=== PATIENT | male | born 1960 | race Caucasian/White ===

== ENCOUNTER 2017-05-07 10:23 | Day surgery (SDC) | payer BC, OTHER ==
[2017-05-03 15:25] VITALS: BMI 27.2
[~2017-05-07 10:23] MED LIST: LACTATED RINGERS 1,000 ML IV SCH; LIDOCAINE 1% 20 ML VIAL (10MG/ML) FOR IV START INTRADERMA PRN
[2017-05-07 11:00] VITALS: RESP 16; TEMP 98.1
[2017-05-07] MEDS ORDERED: LIDOCAINE 1% INJ 10MG/ML (20 ML MDV) ONE (11:24)
[2017-05-07] MEDS ORDERED: PROPOFOL 10 MG/ML 20 ML VIAL IV ONE (11:24)
--- NOTE | 2017-05-07 11:50 | P.PCN ---
Date of Procedure: 05/07/17 Preoperative Diagnosis: Postoperative Diagnosis: Procedure(s) Performed: Procedure: Total colonoscopy. Preoperative diagnosis: History of diverticulitis. Postoperative diagnosis: Sigmoid diverticulosis with no evidence of acute diverticulitis, strictures, polyps or cancer. Preparation: HalfLytely prep. Sedation: Was provided by anesthesia. Brief clinical history: The patient is a 57-year-old male who was evaluated in the office earlier this month because of recent episodes of diverticulitis. The patient had one episode in January and a second episode a month later. His last colonoscopy was in June 2012. This evaluation is to assess for complicated diverticular disease or other pathology. Procedure: With the patient on his left lateral decubitus position and after informed consent and adequate sedation, the perianal area was inspected and it did not show any fissures or fistulas. There were no masses felt on digital rectal examination. The Olympus CFQ 160L video colonoscope was then inserted in the rectum in the usual fashion and advanced to the cecum. There were several diverticular orifices seen scattered in the sigmoid with no evidence of acute diverticulitis or strictures. No polyps or tumors were seen or any other pathology. I retroflexed the endoscope in the rectum before the endoscope was withdrawn. The patient tolerated the procedure well. Plan: The patient was reassured. Discussed dietary measures. He will follow up with you as planned. Further plans will be made based on his course. In the absence of family history of colon cancer or finding of polyps, I recommended repeat screening in 10 years. Implants: Indications for Procedure: Operative Findings: Description of Procedure:
[2017-05-07 12:06] VITALS: BP 115/81; PULSE 60
== END 2017-05-07 12:17 | disposition home or self-care (01) ==
LOC: ORWHC2ENDO 10:23
DX: K57.30 Diverticulosis of large intestine without perforation or abscess without bleeding (principal); I10 Essential (primary) hypertension; Z79.899 Other long term (current) drug therapy
CPT/HCPCS: 45378; J2001; J2704

== ENCOUNTER 2018-08-28 08:11 | Day surgery (SDC) | payer BC ==
[2018-08-26 14:47] VITALS: BMI 26.9
[~2018-08-28 08:11] MED LIST changes: +DEXAMETHASONE SOD PHOSPHATE 10 MG/ML 1 ML VIAL IV ONE; +HEPARIN SODIUM,PORCINE 5,000 UNIT/ML 1 ML VIAL SQ ONE; +HYDROmorphone 0.5 MG/0.5 ML SYRINGE IVP PRN; +ONDANSETRON 4 MG/2 ML VIAL IVP ONE; +SCOPOLAMINE 1.5MG/72HR PATCH TRANSDERM ONE; +ceFAZolin IN SWFI 2 GM/20 ML SYRINGE IVP ONE
[2018-08-28 09:19] VITALS: RESP 16
[2018-08-28] MEDS ORDERED: MIDAZOLAM 2 MG/2 ML VIAL IVP ONE (09:44)
[2018-08-28] MEDS ORDERED: fentaNYL (PF) 50 MCG/ML 2 ML AMP IVP ONE (09:44)
--- NOTE | 2018-08-28 09:46 | P.GSHP ---
History of Present Illness H&P Date: 08/28/18 Chief Complaint: Left inguinal hernia Patient seen in the office in June. Patient has complaints of bulging left groin. Found on physical exam to have a left inguinal hernia. Some urinary complaints at times. No change in bowel habits. Past Medical History Past Medical History: Cancer, Hypertension Additional Past Medical History / Comment(s): SKIN CANCER History of Any Multi-Drug Resistant Organisms: None Reported Past Surgical History: Back Surgery Additional Past Surgical History / Comment(s): disectomy Past Anesthesia/Blood Transfusion Reactions: Motion Sickness Smoking Status: Never smoker - Past Family History Mother Family Medical History: No Reported History Medications and Allergies Home Medications Medication Instructions Recorded Confirmed Type Cetirizine HCl [Zyrtec] 10 mg PO DAILY 05/03/17 08/26/18 History Fluticasone Nasal [place] [Flonase 2 spr EA NOSTRIL DAILY 05/03/17 08/26/18 History Nasal [place]] Hydrochlorothiazide [Hydrodiuril] 25 mg PO DAILY 05/03/17 08/26/18 History Montelukast [Singulair] 10 mg PO DAILY 05/03/17 08/26/18 History Allergies Allergy/AdvReac Type Severity Reaction Status Date / Time No Known Allergies Allergy Verified 08/28/18 08:49 Surgical - Exam Vital Signs Temp Pulse Resp BP Pulse Ox 98.0 F 85 16 142/85 99 08/28/18 09:05 08/28/18 09:05 08/28/18 09:05 08/28/18 09:05 08/28/18 09:05 Physical exam: General: Well-developed, well-nourished HEENT: Normocephalic, sclerae nonicteric Abdomen: Nontender, nondistended, reducible left inguinal hernia Extremities: No edema Neuro: Alert and oriented Assessment and Plan (1) Left inguinal hernia Narrative/Plan: Will proceed with laparoscopic da Noemy assisted left inguinal hernia repair with mesh. Possible bilateral. Risks of bleeding, infection, recurrence, bladder and bowel injury, numbness, nerve injury, conversion to an open procedure were discussed with the patient. The patient understands and wishes to proceed. Current Visit: Yes Status: Acute Code(s): K40.90 - UNIL INGUINAL HERNIA, W/ O OBST OR GANGR, NOT SPCF RECUR SNOMED Code(s): 601937565
[2018-08-28] MEDS ORDERED: KETOROLAC 30 MG/ML 1 ML VIAL ONE (10:10)
[2018-08-28] MEDS ORDERED: MIDAZOLAM 2 MG/2 ML VIAL ONE (10:10)
[2018-08-28] MEDS ORDERED: ROCURONIUM BROMIDE 10 MG/ML 10 ML VIAL IV ONE (10:10)
[2018-08-28] MEDS ORDERED: fentaNYL (PF) 50 MCG/ML 2 ML AMP ONE (10:10)
[2018-08-28] MEDS ORDERED: SUCCINYLCHOLINE CHLORIDE 100 MG/5 ML SYR IV ONE (10:10)
[2018-08-28] MEDS ORDERED: PROPOFOL 10 MG/ML 20 ML VIAL IV ONE (10:10)
[2018-08-28] MEDS ORDERED: LIDOCAINE 1% INJ 10MG/ML (20 ML MDV) ONE (10:10)
[2018-08-28] MEDS ORDERED: GLYCOPYRROLATE 0.2 MG/ML 2 ML VIAL ONE (10:10)
[2018-08-28] MEDS ORDERED: NEOSTIGMINE 1 MG/ML 10 ML VIAL ONE (10:10)
[2018-08-28] MEDS ORDERED: BUPIVACAIN-EPI 0.25%-1:200,000 30 ML VIAL SQ ONE ×2 (10:39)
--- NOTE | 2018-08-28 10:48 | P.ONQ ---
Anesthesiology Proc Note - PNB - Peripheral Nerve Block Performed Left Transversus Abdominis Single Time Out Performed: Yes Procedure Start Time: 09:45 Indication: Acute Post-Operative Pain, Analgesia Specifically requested for management of pain by DrJane: Rinku Carter Sedation Type: Sedate with meaningful contact maintained Preparation: Sterile Prep Position: Supine Catheter: None Needle Types: Other (see comment) (Pajunk) Needle Size: 100mm (4") Needle Gauge: 21 Technique: Ultrasound Injectate: Other (see comment) (0.25% ropivacaine/0.1% lidocaine: 30 mL) Adjunct: Epinephrine (see comment for dilution ratio) (1:200,000) Blood Aspirated: No Pain Paresthesia on Injection Noted: No Resistance on Injection: Normal Events: Uneventful and Well Tolerated
[2018-08-28] MEDS ORDERED: LACTATED RINGERS 1,000 ML IV ONE (11:22)
[2018-08-28] MEDS ORDERED: HYDROcodone/APAP 5-325MG 1 EACH TAB PO PRN (12:00)
[2018-08-28] MEDS ORDERED: NALOXONE 0.4 MG/ML 1 ML VIAL IV PRN (12:00)
--- NOTE | 2018-08-28 12:04 | P.PCN ---
Date of Procedure: 08/28/18 Procedure(s) Performed: PREOPERATIVE DIAGNOSIS: Left inguinal hernia POSTOPERATIVE DIAGNOSIS: Same PROCEDURE: Laparoscopic repair [] inguinal hernia with the da Noemy robot assistance with mesh SURGEON: Emma EBL: Minimal ANESTHESIA: General COMPLICATIONS: None OPERATIVE PROCEDURE: Patient was placed in the operating table in the supine position. The patient was placed under general anesthesia. The patient was then placed in lithotomy. The abdomen was prepped and draped in usual sterile fashion. A small curvilinear supraumbilical incision was made. The fascia was retracted anteriorly with Estela forceps. The Veress needle was inserted. The saline drop test was normal. Insufflation took place to 15 mmHg. A 5 mm trocar was placed into the peritoneal cavity. This was later switched to a 12 mm trocar. 2 additional 8 mm trochars were placed in the right upper quadrant and left upper quadrant under visualization. The robotic arms were then brought in and docked into place. The fenestrated bipolar was used in the left arm and the laparoscopic dimple was utilized in the right arm. A 30 12 mm scope was used in the up position. The peritoneal cavity was inspected. The patient had no visible right inguinal hernia. The patient had a large direct left inguinal hernia. There were dense adhesions to the sigmoid colon and I could not say with certainty whether there was an indirect component upon initial evaluation. The peritoneum was incised in a horizontal fashion cephalad to the internal inguinal ring. Following that careful dissection of the preperitoneal space took place. This took place using both electrocautery, sharp dissection but primarily blunt dissection. This was somewhat more challenging than usual given the chronic inflammatory change. The planes were difficult to visualize. Visualization of the pubic tubercle and Margarito's ligament took place medially. Full dissection took place laterally as well. The hernia sac was fully dissected. The patient did not have any sizable indirect component. Once we had adequate space the 15 x 10 progrip mesh was advanced into the preperitoneal space and flattened out appropriately to cover all potential hernia sites. No sutures were used. The peritoneal defect was then closed using a locking 2-0 VLok suture. The pneumoperitoneum was then evacuated. The fascia at the 12 mm site was closed using the Ryan Conway technique and an 0 Vicryl stitch. The skin of all 3 sites was closed using a 4-0 Monocryl stitch. Skin glue was then applied. DISPOSITION: Stable to recovery room
[2018-08-28 12:12] VITALS: TEMP 97.2
[2018-08-28] MEDS ORDERED: TAMSULOSIN 0.4 MG CAP.ER.24H PO STA (12:55)
[2018-08-28 15:11] VITALS: BP 138/90; PULSE 69
== END 2018-08-28 15:17 | disposition home or self-care (01) ==
LOC: OR 08:11
PROVIDERS: ATTEND Surgery
DX: K40.90 Unilateral inguinal hernia, without obstruction or gangrene, not specified as recurrent (principal); K66.0 Peritoneal adhesions (postprocedural) (postinfection); I10 Essential (primary) hypertension; Z85.828 Personal history of other malignant neoplasm of skin; Z79.899 Other long term (current) drug therapy
CPT/HCPCS: 49650; 64486; C1781; J2250; J1100; J2710; J2405; J2001; J3010; J1885; J0330; J2704

== ENCOUNTER 2019-06-01 10:36 | Observation (INO) | payer BC ==
[2019-06-01] MEDS ORDERED: MORPHINE SULFATE 4 MG/ML SYRINGE IV STA (11:19)
[2019-06-01] MEDS ORDERED: SODIUM CHLORIDE 0.9% 1,000 ML IV STA ×2 (11:19)
[2019-06-01] MEDS ORDERED: KETOROLAC 30 MG/ML 1 ML VIAL IVP STA (11:19)
[2019-06-01] MEDS ORDERED: ONDANSETRON 4 MG/2 ML VIAL IVP STA (11:19)
[2019-06-01] MEDS ORDERED: PANTOPRAZOLE 40 MG/10 ML VIAL IVP STA (11:19)
--- NOTE | 2019-06-01 11:21 | ED ---
Abdominal Pain HPI - General Chief Complaint: Abdominal Pain Stated Complaint: Upper Abdomen Pain Time Seen by Provider: 06/01/19 10:53 Source: patient, RN notes reviewed, old records reviewed Mode of arrival: ambulatory Limitations: no limitations - History of Present Illness Initial Comments: Patient is a 59-year-old male presents emergency department today for chief complaint of diffuse abdominal pain for the past 3 days. Symptoms started after he ate a chicken sandwich on night. He states that he woke up after a nap and felt that there was a hard rock in upper abdomen. Patient initially Thought he was constipated, and started to Using Multiple Stool Softeners and Prune Juice to Help Improve bowel moevements. He since has Been Having Loose Stools. He States the Pain Is Persisting in upper abdomen. He Complains of Some Occasional Fevers and Chills. Patient Denies Any Other Significant Complaints. Patient reports pain occasionally is worse with taking deep breath and feels like it is under his diaphragm. - Related Data Home Medications Medication Instructions Recorded Confirmed Cetirizine HCl [Zyrtec] 10 mg PO DAILY 05/03/17 06/01/19 Fluticasone Nasal [place] [Flonase 2 spr EA NOSTRIL DAILY 05/03/17 06/01/19 Nasal [place]] Hydrochlorothiazide [Hydrodiuril] 25 mg PO DAILY 05/03/17 06/01/19 Montelukast [Singulair] 10 mg PO DAILY 05/03/17 06/01/19 Allergies Allergy/AdvReac Type Severity Reaction Status Date / Time No Known Allergies Allergy Verified 06/01/19 13:56 Review of Systems ROS Statement: Those systems with pertinent positive or pertinent negative responses have been documented in the HPI. ROS Other: All systems not noted in ROS Statement are negative. Past Medical History Past Medical History: Cancer, Hypertension Additional Past Medical History / Comment(s): SKIN CANCER History of Any Multi-Drug Resistant Organisms: None Reported Past Surgical History: Back Surgery Additional Past Surgical History / Comment(s): disectomy Past Anesthesia/Blood Transfusion Reactions: Motion Sickness Past Psychological History: No Psychological Hx Reported Smoking Status: Never smoker - Past Family History Mother Family Medical History: No Reported History General Exam - General Exam Comments Initial Comments: Pleasant 59-year-old male. No significant distress. Limitations: no limitations General appearance: alert, in no apparent distress Head exam: Present: atraumatic, normocephalic, normal inspection Eye exam: Present: normal appearance, PERRL, EOMI. Absent: scleral icterus, conjunctival injection, periorbital swelling ENT exam: Present: normal exam, mucous membranes moist Neck exam: Present: normal inspection. Absent: tenderness, meningismus, lymphadenopathy Respiratory exam: Present: normal lung sounds bilaterally. Absent: respiratory distress, wheezes, rales, rhonchi, stridor Cardiovascular Exam: Present: regular rate, normal rhythm, normal heart sounds. Absent: systolic murmur, diastolic murmur, rubs, gallop, clicks GI/Abdominal exam: Present: soft, tenderness (epigastric tenderness), normal bowel sounds. Absent: distended, guarding, rebound, rigid Back exam: Present: normal inspection Neurological exam: Present: alert, oriented X3, CN II-XII intact Psychiatric exam: Present: normal affect, normal mood Skin exam: Present: warm, dry, intact, normal color. Absent: rash Course Vital Signs 06/01/19 10:47 Temperature 98.2 F Pulse Rate 62 Respiratory 18 Rate Blood Pressure 152/89 O2 Sat by Pulse 98 Oximetry Medical Decision Making - Medical Decision Making Is a 51-year-old male, presents emergency department today for evaluation for epigastric abdominal pain, initially thought his symptoms related To Patient taking multiple stool softeners. Having symptoms worse for the past 4 days. Patient had IV fluids labwork obtained. Labs are reviewed and unremarkable. Due to persistent tenderness CT was ordered. CT shows abnormal 7.8 cm cystic mass with calcifications in the upper abdomen diaphragm. It appears separate from the stomach adrenal glands and kidneys. Patient was informed this could be possible cystic neoplasm or benign or possibly malignant. Patient was informed of these results. Patient states that he surprised by this finding. I discussed the Rika the Patient for further observation and possible consult surgery or interventional radiology to biopsy this area. Patient understands treatment plan will comply. - Lab Data Result diagrams: 06/01/19 11:35 06/01/19 11:35 Lab Results 06/01/19 06/01/19 06/01/19 Range/Units 11:35 11:35 11:35 WBC 10.4 (3.8-10.6) k/uL RBC 5.21 (4.30-5.90) m/uL Hgb 15.9 (13.0-17.5) gm/dL Hct 46.1 (39.0-53.0) % MCV 88.6 (80.0-100.0) fL MCH 30.6 (25.0-35.0) pg MCHC 34.5 (31.0-37.0) g/dL RDW 15.6 H (11.5-15.5) % Plt Count 296 (150-450) k/uL Neutrophils % 83 % Lymphocytes % 11 % Monocytes % 4 % Eosinophils % 1 % Basophils % 0 % Neutrophils # 8.6 H (1.3-7.7) k/uL Lymphocytes # 1.1 (1.0-4.8) k/uL Monocytes # 0.4 (0-1.0) k/uL Eosinophils # 0.1 (0-0.7) k/uL Basophils # 0.0 (0-0.2) k/uL PT 9.7 (9.0-12.0) sec INR 0.9 (<1.2) APTT 23.8 (22.0-30.0) sec Sodium 137 (137-145) mmol/L Potassium 3.9 (3.5-5.1) mmol/L Chloride 99 (98-107) mmol/L Carbon Dioxide 27 (22-30) mmol/L Anion Gap 11 mmol/L BUN 19 (9-20) mg/dL Creatinine 0.81 (0.66-1.25) mg/dL Est GFR (CKD-EPI)AfAm >90 (>60 ml/min/1.73 sqM) Est GFR (CKD-EPI)NonAf >90 (>60 ml/min/1.73 sqM) Glucose 117 H (74-99) mg/dL Calcium 9.7 (8.4-10.2) mg/dL Total Bilirubin 1.2 (0.2-1.3) mg/dL AST 24 (17-59) U/L ALT 33 (21-72) U/L Alkaline Phosphatase 60 (38-126) U/L Total Protein 7.6 (6.3-8.2) g/dL Albumin 4.4 (3.5-5.0) g/dL Amylase 48 (30-110) U/L Lipase 69 (23-300) U/L Urine Color Urine Appearance (Clear) Urine pH (5.0-8.0) Ur Specific [place] (1.001-1.035) Urine Protein (Negative) Urine Glucose (UA) (Negative) Urine Ketones (Negative) Urine Blood (Negative) Urine Nitrite (Negative) Urine Bilirubin (Negative) Urine Urobilinogen (<2.0) mg/dL Ur Leukocyte Esterase (Negative) 06/01/19 Range/Units 11:55 WBC (3.8-10.6) k/uL RBC (4.30-5.90) m/uL Hgb (13.0-17.5) gm/dL Hct (39.0-53.0) % MCV (80.0-100.0) fL MCH (25.0-35.0) pg MCHC (31.0-37.0) g/dL RDW (11.5-15.5) % Plt Count (150-450) k/uL Neutrophils % % Lymphocytes % % Monocytes % % Eosinophils % % Basophils % % Neutrophils # (1.3-7.7) k/uL Lymphocytes # (1.0-4.8) k/uL Monocytes # (0-1.0) k/uL Eosinophils # (0-0.7) k/uL Basophils # (0-0.2) k/uL PT (9.0-12.0) sec INR (<1.2) APTT (22.0-30.0) sec Sodium (137-145) mmol/L Potassium (3.5-5.1) mmol/L Chloride (98-107) mmol/L Carbon Dioxide (22-30) mmol/L Anion Gap mmol/L BUN (9-20) mg/dL Creatinine (0.66-1.25) mg/dL Est GFR (CKD-EPI)AfAm (>60 ml/min/1.73 sqM) Est GFR (CKD-EPI)NonAf (>60 ml/min/1.73 sqM) Glucose (74-99) mg/dL Calcium (8.4-10.2) mg/dL Total Bilirubin (0.2-1.3) mg/dL AST (17-59) U/L ALT (21-72) U/L Alkaline Phosphatase (38-126) U/L Total Protein (6.3-8.2) g/dL Albumin (3.5-5.0) g/dL Amylase (30-110) U/L Lipase (23-300) U/L Urine Color Yellow Urine Appearance Clear (Clear) Urine pH 6.5 (5.0-8.0) Ur Specific [place] 1.018 (1.001-1.035) Urine Protein Negative (Negative) Urine Glucose (UA) Negative (Negative) Urine Ketones 1+ H (Negative) Urine Blood Negative (Negative) Urine Nitrite Negative (Negative) Urine Bilirubin Negative (Negative) Urine Urobilinogen <2.0 (<2.0) mg/dL Ur Leukocyte Esterase Negative (Negative) 06/01/19 12:13 EKG shows sinus bradycardia left axis deviation noted. Much. 47 bpm. Pulse 162 ms. QS duration is 94 ms. QT and sees 44/92 ms. No evidence of ST elevation. - Radiology Data Radiology results: report reviewed Disposition Clinical Impression: Abdominal mass Disposition: ADMITTED IP TO THIS [facility] Condition: Good Is patient prescribed a controlled substance at d/c from ED?: No Referrals: Ava Caro III, MD [Primary Care Provider] - 1-2 days Time of Disposition: 14:04
[2019-06-01 11:52] LABS: Basophils % (A) 0 %; Eosinophils # (A) 0.1 k/uL (0-0.7); Eosinophils % (A) 1 %; HCT 46.1 % (39.0-53.0); HGB 15.9 gm/dL (13.0-17.5); Lymphocytes # (A) 1.1 k/uL (1.0-4.8); Lymphocytes % (A) 11 %; MCH 30.6 pg (25.0-35.0); MCHC 34.5 g/dL (31.0-37.0); MCV 88.6 fL (80.0-100.0); Mean Platelet Volume 6.9; Monocytes # (A) 0.4 k/uL (0-1.0); Monocytes % (A) 4 %; Neutrophils # (A) 8.6 k/uL (1.3-7.7); Neutrophils % (A) 83 %; Platelet Count 296 k/uL (150-450); RBC 5.21 m/uL (4.30-5.90); RDW 15.6 % (11.5-15.5); WBC 10.4 k/uL (3.8-10.6)
[2019-06-01 12:01] LABS: INR 0.9 (<1.2); Partial Thromboplastin Time 23.8 sec (22.0-30.0); Prothrombin Time 9.7 sec (9.0-12.0)
[2019-06-01 12:03] LABS: ALT 33 U/L (21-72); AST 24 U/L (17-59); African American GFR (CKD) >90 (>60 ml/min/1.73 sqM); Albumin 4.4 g/dL (3.5-5.0); Alkaline Phosphatase 60 U/L (38-126); Amylase 48 U/L (30-110); Anion Gap 11 mmol/L; Blood Urea Nitrogen 19 mg/dL (9-20); Calcium 9.7 mg/dL (8.4-10.2); Carbon Dioxide 27 mmol/L (22-30); Chloride 99 mmol/L (98-107); Glucose 117 mg/dL (74-99); Potassium 3.9 mmol/L (3.5-5.1); Sodium 137 mmol/L (137-145); Total Bilirubin 1.2 mg/dL (0.2-1.3); Total Protein 7.6 g/dL (6.3-8.2)
[2019-06-01 12:03] LABS: Appearance,Urine Clear (Clear); Bilirubin,Urine Negative (Negative); Blood,Urine Negative (Negative); Color,Urine Yellow; Glucose,Urine (UA) Negative (Negative); Ketones,Urine 1+ (Negative); Leukocyte Esterase,Urine Negative (Negative); Nitrite,Urine Negative (Negative); PH, Urine 6.5 (5.0-8.0); Protein,Urine Negative (Negative); Specific Gravity,Urine 1.018 (1.001-1.035); Urobilinogen,Urine <2.0 mg/dL (<2.0)
--- NOTE | 2019-06-01 13:10 | CT ---
EXAMINATION TYPE: CT abdomen pelvis w con DATE OF EXAM: 06/01/2019 REFERENCE: NONE HISTORY: LLQ pain, diverticulitis? HISTORY: LLQ pain CT DLP: 804.7 mGy Automated exposure control for dose reduction was used. TECHNIQUE: Helical acquisition through the abdomen and pelvis was obtained following the oral ingesti on of without Oral Contrast and following intravenous administration of 100 mL of Isovue 300. The gretta a was reformatted in axial, coronal and sagittal projections. FINDINGS: There is minimal dependent atelectasis in the dependent portions of both lungs. There is n o pleural or pericardial fluid. The heart is not enlarged. There is a 6.5 x 7.8 x 7.8 cm low attenuating structure in the left upper abdomen displacing the aort a towards the right. This has some calcification in its dependent portions. This appears separate fro m the stomach, adrenal glands and kidneys. It appears to be contiguous with the crux of the diaphragm and may represent a foregut duplication cyst. Other cystic neoplasms both benign and malignant would need to BE considered. Within the abdomen, the liver, spleen and gallbladder. Both adrenal glands appear normal. There are multiple low attenuating lesions within both kidneys too small accurately characterize. I s uspect these represent cysts. The pancreas appears unremarkable. There is no significant retroperitoneal, iliac or inguinal adenopathy. There is mild calcification of the prostate. The bladder is unremarkable. There are scattered diverticula within the sigmoid colon without radiographic evidence of diverticuli tis. The appendix is unremarkable. Small bowel loops are normal in caliber. There is no free fluid and no free air identified. There is degenerative disease and a vacuum phenomena present at L5-S1. No bony destructive lesion is seen. IMPRESSION: 1. LARGE, 7.8 CM CYSTIC MASS CONTAINING SOME CALCIFICATIONS IN THE LEFT PARASPINAL REGION ADJACENT TO THE CRUX OF THE DIAPHRAGM. 4 DUPLICATION CYST IS A POSSIBILITY. OTHER NEOPLASTIC PROCESSES BOTH MORGAN GN AND MALIGNANT BE CONSIDERED. 2. PROBABLE CYSTIC CHANGES IN BOTH KIDNEYS. 3. MINIMAL DIVERTICULOSIS OF THE SIGMOID COLON. 4. MILD DEGENERATIVE CHANGES WITHIN THE SPINE.
[2019-06-01] MEDS ORDERED: ACETAMINOPHEN TAB 325 MG TAB PO PRN (14:05)
[2019-06-01] MEDS ORDERED: KETOROLAC 30 MG/ML 1 ML VIAL IVP PRN (14:05)
[2019-06-01] MEDS ORDERED: MORPHINE SULFATE 4 MG/ML SYRINGE IV PRN (14:05)
[2019-06-01] MEDS ORDERED: IBUPROFEN 400 MG TAB PO PRN (14:05)
[2019-06-01] MEDS ORDERED: ONDANSETRON 4 MG/2 ML VIAL IVP PRN (14:05)
[2019-06-01] MEDS ORDERED: NALOXONE 0.4 MG/ML 1 ML VIAL IV PRN (14:05)
[2019-06-01] MEDS: SODIUM CHLORIDE 0.9% 1,000 ML IV SCH ×2 (15:58→22:03)
--- NOTE | 2019-06-01 23:16 | P.HPIM ---
History of Present Illness H&P Date: 06/01/19 Chief Complaint: Abdominal pain Patient is a 59-year-old male with a known history of hypertension, basilar cell skin cancer, history of back surgery came to ER with the complaints of abdominal pain, mainly middle of the abdomen and felt like pushing up to the bathroom. Patient has been having worsening symptoms for the past 3 days. He states that he is feeling fullness or abdominal and unable to eat as much before. Denied any loss of appetite or weight loss. Patient has been having constipation like symptoms once or twice a year which is reviewed in to 3 days usually. Patient felt like cold chills and became sweaty. Denied any constipation currently. Denied any diarrhea. Patient has been having persistent pain in the upper abdomen which made him come to ER. No complaints of chest pain or shortness of breath. No pleuritic chest pain. No Recent illnesses or sick contacts. CT of the abdominal pelvis showed large cystic 7.8 cm mass containing some calci fications in the left paraspinal region adjacent to the crux of the diaphragm. Possible cystic changes in both kidneys. Minimal diverticulosis in the sigmoid colon. Mild degenerative changes in the spine. No bony destructive lesions noted. EKG shows sinus bradycardia Review of Systems Constitutional: Patient denies any fever or chills . No generalized weakness or weight loss. Abdomen: Patient denied nausea vomiting and diarrhea and abdominal pain. Patient does have abdominal fullness and discomfort. Cardiovascular: Patient denies any chest pain or short of breath no palpitations. Respiratory: patient denied any cough is from production. No shortness of breath Neurologic: Patient denied any numbness or tingling headache. Musculoskeletal: Patient denies any complaints of joint swelling or deformity. Skin: Negative Psychiatric: Negative Endocrine: No heat or cold intolerance. No recent weight gain. Genitourinary: No dysuria or hematuria. All other 14 point ROS negative except the above Past Medical History Past Medical History: Blood Disorder, Cancer, Hypertension Additional Past Medical History / Comment(s): basal cell SKIN CANCER, anemia, broncitis History of Any Multi-Drug Resistant Organisms: None Reported Past Surgical History: Back Surgery, Hernia Repair Additional Past Surgical History / Comment(s): disectomy, cataract surgery with implants Past Anesthesia/Blood Transfusion Reactions: Motion Sickness Past Psychological History: No Psychological Hx Reported Smoking Status: Never smoker Past Alcohol Use History: Occasional Additional Past Alcohol Use History / Comment(s): . Past Drug Use History: None Reported - Past Family History Mother Family Medical History: Hypertension Father Family Medical History: COPD Additional Family Medical History / Comment(s): pacemaker Sister(s) Additional Family Medical History / Comment(s): MS Medications and Allergies Home Medications Medication Instructions Recorded Confirmed Type Cetirizine HCl [Zyrtec] 10 mg PO DAILY 05/03/17 06/01/19 History Fluticasone Nasal [place] [Flonase 2 spr EA NOSTRIL DAILY 05/03/17 06/01/19 History Nasal [place]] Hydrochlorothiazide [Hydrodiuril] 25 mg PO DAILY 05/03/17 06/01/19 History Montelukast [Singulair] 10 mg PO DAILY 05/03/17 06/01/19 History Allergies Allergy/AdvReac Type Severity Reaction Status Date / Time No Known Allergies Allergy Verified 06/01/19 13:56 Physical Exam Vitals: Vital Signs Temp Pulse Pulse Resp BP BP Pulse Ox 06/01/19 15:06 97.8 F 60 16 135/84 96 06/01/19 14:41 98.0 F 68 18 124/87 98 06/01/19 10:47 98.2 F 62 18 152/89 98 Intake and Output 06/01/19 06/01/19 06/01/19 06:59 14:59 22:59 Intake Total 300 Balance 300 Intake: Intake, IV Titration 300 Amount Sodium Chloride 0.9% 1, 300 000 ml @ 100 mls/hr IV . Q10H [facility] Rx#:[id number] Other: Voiding Method Toilet Weight 78.925 kg PHYSICAL EXAMINATION: Patient is lying in the bed comfortably, no acute distress, awake alert and oriented.. HEENT: Normocephalic. Neck is supple. Pupils reactive. Nostrils clear. Oral cavity is moist. Ears reveal no drainage. Neck reveals no JVD, carotid bruits, or thyromegaly. CHEST EXAMINATION: Trachea is central. Symmetrical expansion. Lung nugent clear to auscultation and percussion. CARDIAC: Normal S1, S2 with no gallops. No murmurs ABDOMEN: Soft. Bowel sounds normal. No organomegaly. No abdominal bruits. Extremities: reveal no edema. No clubbing or cyanosis Neurologically awake, alert, oriented x3 with well-coordinated movements. No focal deficits noted Skin: No rash or skin lesions. Psychiatric: Coperative. Nonsuicidal Musculoskeletal: No joint swelling or deformity. Normal range of motion. Results CBC & Chem 7: 06/01/19 11:35 06/01/19 11:35 Labs: Abnormal Lab Results - Last 24 Hours (Table) 06/01/19 06/01/19 06/01/19 Range/Units 11:35 11:35 11:55 RDW 15.6 H (11.5-15.5) % Neutrophils # 8.6 H (1.3-7.7) k/uL Glucose 117 H (74-99) mg/dL Urine Ketones 1+ H (Negative) Thrombosis Risk Factor Assmnt - DVT/VTE Prophylaxis DVT/VTE Prophylaxis: Pharmacologic Prophylaxis ordered - Choose All That Apply Any of the Below Risk Factors Present?: Yes Each Factor Represents 1 point: Age 41-60 years, Obesity (BMI >25) Other Risk Factors: No Other congenital or acquired thrombophilia - If yes, enter type in comment: No Thrombosis Risk Factor Assessment Total Risk Factor Score: 2 Thrombosis Risk Factor Assessment Level: Low Risk Assessment and Plan Assessment: Large cystic 7.8 cm mass in the left paraspinal region adjacent to the crux of the diaphragm. Abdominal fullness and decreased oral intake. Mild diverticulosis of the sigmoid colon Hypertension Basilar cell carcinoma of the skin history DVT prophylaxis with heparin subcu Plan: Patient will be continued on pain management and supportive. IV hydration. Gen. surgery will be consulted for evaluation possible biopsy versus further i nvestigation. We'll follow up closely. Further recommendations based on the clinical course.. Time with Patient: Greater than 30
[2019-06-02 07:52] VITALS: BP 120/75; PULSE 59; RESP 16; TEMP 98.2
[2019-06-02] MEDS ORDERED: PANTOPRAZOLE 40 MG/10 ML VIAL IV SCH (09:00)
--- NOTE | 2019-06-02 11:07 | P.GSCN ---
History of Present Illness Consult date: 06/02/19 Reason for Consult: Abdominal pain History of present illness: 59-year-old male presents to the hospital complaining of pain in the upper abdom en. This pain began evening and was increasing in severity. He came for evaluation. Was nauseated and bloated. No vomiting. Does have a history of constipation. After moving his bowels his pain did not improve. Pain sometimes more to the epigastric region. Does radiate to the back. Some early satiety issues. Some pleuritic component. 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 Patient admits after questioning that he had this evaluated at [facility] 1-2 years ago. He states he even had a biopsy. He was told this was likely congenital. He believes he had an EGD at that time. We're consulted for this mass. Review of Systems The patient denies any acute changes in vision or hearing, no dysphagia or odynophagia, no chest pain or shortness of breath, no dysuria or hematuria, no headache, no runny nose, no rectal bleeding or melena, no unexplained weight loss Past Medical History Past Medical History: Blood Disorder, Cancer, Hypertension Additional Past Medical History / Comment(s): basal cell SKIN CANCER, anemia, broncitis History of Any Multi-Drug Resistant Organisms: None Reported Past Surgical History: Back Surgery, Hernia Repair Additional Past Surgical History / Comment(s): disectomy, cataract surgery with implants Past Anesthesia/Blood Transfusion Reactions: Motion Sickness Past Psychological History: No Psychological Hx Reported Smoking Status: Never smoker Past Alcohol Use History: Occasional Additional Past Alcohol Use History / Comment(s): . Past Drug Use History: None Reported - Past Family History Mother Family Medical History: Hypertension Father Family Medical History: COPD Additional Family Medical History / Comment(s): pacemaker Sister(s) Additional Family Medical History / Comment(s): MS Medications and Allergies Home Medications Medication Instructions Recorded Confirmed Type Cetirizine HCl [Zyrtec] 10 mg PO DAILY 05/03/17 06/01/19 History Fluticasone Nasal [place] [Flonase 2 spr EA NOSTRIL DAILY 05/03/17 06/01/19 History Nasal [place]] Hydrochlorothiazide [Hydrodiuril] 25 mg PO DAILY 05/03/17 06/01/19 History Montelukast [Singulair] 10 mg PO DAILY 05/03/17 06/01/19 History Allergies Allergy/AdvReac Type Severity Reaction Status Date / Time No Known Allergies Allergy Verified 06/01/19 13:56 Surgical - Exam Vital Signs Temp Pulse Resp BP Pulse Ox 98.2 F 62 18 152/89 98 06/01/19 10:47 06/01/19 10:47 06/01/19 10:47 06/01/19 10:47 06/01/19 10:47 Physical exam: General: Well-developed, well-nourished HEENT: Normocephalic, sclerae nonicteric Abdomen: Nontender, nondistended Extremities: No edema Neuro: Alert and oriented Results - Labs 06/01/19 11:35 06/01/19 11:35 Abnormal Lab Results - Last 24 Hours (Table) 06/01/19 06/01/19 06/01/19 Range/Units 11:35 11:35 11:55 RDW 15.6 H (11.5-15.5) % Neutrophils # 8.6 H (1.3-7.7) k/uL Glucose 117 H (74-99) mg/dL Urine Ketones 1+ H (Negative) Diabetes panel 06/01/19 Range/Units 11:35 Sodium 137 (137-145) mmol/L Potassium 3.9 (3.5-5.1) mmol/L Chloride 99 (98-107) mmol/L Carbon Dioxide 27 (22-30) mmol/L BUN 19 (9-20) mg/dL Creatinine 0.81 (0.66-1.25) mg/dL Glucose 117 H (74-99) mg/dL Calcium 9.7 (8.4-10.2) mg/dL AST 24 (17-59) U/L ALT 33 (21-72) U/L Alkaline Phosphatase 60 (38-126) U/L Total Protein 7.6 (6.3-8.2) g/dL Albumin 4.4 (3.5-5.0) g/dL Calcium panel 06/01/19 Range/Units 11:35 Calcium 9.7 (8.4-10.2) mg/dL Albumin 4.4 (3.5-5.0) g/dL Pituitary panel 06/01/19 Range/Units 11:35 Sodium 137 (137-145) mmol/L Potassium 3.9 (3.5-5.1) mmol/L Chloride 99 (98-107) mmol/L Carbon Dioxide 27 (22-30) mmol/L BUN 19 (9-20) mg/dL Creatinine 0.81 (0.66-1.25) mg/dL Glucose 117 H (74-99) mg/dL Calcium 9.7 (8.4-10.2) mg/dL Adrenal panel 06/01/19 Range/Units 11:35 Sodium 137 (137-145) mmol/L Potassium 3.9 (3.5-5.1) mmol/L Chloride 99 (98-107) mmol/L Carbon Dioxide 27 (22-30) mmol/L BUN 19 (9-20) mg/dL Creatinine 0.81 (0.66-1.25) mg/dL Glucose 117 H (74-99) mg/dL Calcium 9.7 (8.4-10.2) mg/dL Total Bilirubin 1.2 (0.2-1.3) mg/dL AST 24 (17-59) U/L ALT 33 (21-72) U/L Alkaline Phosphatase 60 (38-126) U/L Total Protein 7.6 (6.3-8.2) g/dL Albumin 4.4 (3.5-5.0) g/dL Assessment and Plan (1) Abdominal mass Narrative/Plan: 59-year-old male with epigastric abdominal pain. This pain has resolved. Unclear whether that was related to this CAT scan finding of a mass adjacent to the esophagus at the level of the diaphragm. It appears this was already evaluated at a tertiary care center. I do not have those studies available to me. He would be beneficial to confirm stability of the size of this lesion and compared to previous studies. He believes he had a CAT scan performed at [facility] 2 years ago. Stable for discharge from my standpoint. May follow up in the office as needed. He will discuss this further with his primary care physician to review those prior records to confirm stability. If there does appear to be some growth of this lesion consider thoracic surgery evaluation at [facility]. Current Visit: Yes Status: Acute Code(s): R19.00 - INTRA-ABD AND PELVIC SWELLING, MASS AND LUMP, UNSP SITE SNOMED Code(s): 555075788
--- NOTE | 2019-06-08 19:31 | P.DS ---
Providers Date of admission: 06/01/19 14:44 Expected date of discharge: 06/02/19 Attending physician: Marco Valentin Consults: 06/01/19 22:56 Consult Physician Routine Consulting Provider: Rinku Carter Consult Reason/Comments: Abdominal Mass Do you want consulting provider notified?: Yes, Notify in am Primary care physician: Ava Caro Hospital Course: Discharge diagnosis Large cystic 7.8 cm mass in the left paraspinal region adjacent to the crux of the diaphragm. Abdominal fullness and decreased oral intake. Mild diverticulosis of the sigmoid colon Hypertension Basilar cell carcinoma of the skin history DVT prophylaxis with heparin subcu Hospital course Patient is a 59-year-old male with a known history of hypertension, basilar cell skin cancer, history of back surgery came to ER with the complaints of abdominal pain, mainly middle of the abdomen and felt like pushing up to the bathroom. Patient has been having worsening symptoms for the past 3 days. He states that he is feeling fullness or abdominal and unable to eat as much before. Denied any loss of appetite or weight loss. Patient has been having constipation like symptoms once or twice a year which is reviewed in to 3 days usually. Patient felt like cold chills and became sweaty. Denied any constipation currently. Denied any diarrhea. Patient has been having persistent pain in the upper abdomen which made him come to ER. No complaints of chest pain or shortness of breath. No pleuritic chest pain. No Recent illnesses or sick contacts. CT of the abdominal pelvis showed large cystic 7.8 cm mass containing some calcifications in the left paraspinal region adjacent to the crux of the diaphragm. Possible cystic changes in both kidneys. Minimal diverticulosis in the sigmoid colon. Mild degenerative changes in the spine. No bony destructive lesions noted. EKG shows sinus bradycardia 06/02/2019 Patient was seen by general surgery. Apparently patient did have workup done previously for the abdominal mass including computed tomography scan. Patient was recommended to follow-up with primary care physician to compare the size in both imaging studies and follow-up as an outpatient. Patient patient was advised to follow-up with primary care physician Dr. Caro and further recommendations based on the comparison studies of both images. Currently patient denied any abdominal discomfort. No nausea vomiting no chest pain or shortness of breath. Patient is emergently stable otherwise. Did have a bowel movement. Tolerating oral diet. PHYSICAL EXAMINATION: Patient is lying in the bed comfortably, no acute distress, awake alert and oriented.. HEENT: Normocephalic. Neck is supple. Pupils reactive. Nostrils clear. Oral cavity is moist. Ears reveal no drainage. Neck reveals no JVD, carotid bruits, or thyromegaly. CHEST EXAMINATION: Trachea is central. Symmetrical expansion. Lung nugent clear to auscultation and percussion. CARDIAC: Normal S1, S2 with no gallops. No murmurs ABDOMEN: Soft. Bowel sounds normal. No organomegaly. No abdominal bruits. Extremities: reveal no edema. No clubbing or cyanosis Neurologically awake, alert, oriented x3 with well-coordinated movements. No focal deficits noted Skin: No rash or skin lesions. Psychiatric: Coperative. Nonsuicidal Musculoskeletal: No joint swelling or deformity. Normal range of motion. Discharge vitals reviewed. Patient Condition at Discharge: Good Plan - Discharge Summary Discharge Rx Participant: No New Discharge Prescriptions: Continue Fluticasone Nasal [place] [Flonase Nasal [place]] 2 spr EA NOSTRIL DAILY Montelukast [Singulair] 10 mg PO DAILY Hydrochlorothiazide [Hydrodiuril] 25 mg PO DAILY Cetirizine HCl [Zyrtec] 10 mg PO DAILY Discharge Medication List Cetirizine HCl [Zyrtec] 10 mg PO DAILY 05/03/17 [History] Fluticasone Nasal [place] [Flonase Nasal [place]] 2 spr EA NOSTRIL DAILY 05/03/17 [History] Hydrochlorothiazide [Hydrodiuril] 25 mg PO DAILY 05/03/17 [History] Montelukast [Singulair] 10 mg PO DAILY 05/03/17 [History] Follow up Appointment(s)/Referral(s): Ava Caro III, MD [Primary Care Provider] - 1-2 days Discharge Disposition: HOME SELF-CARE
== END 2019-06-02 11:42 | disposition home or self-care (01) ==
LOC: EC 10:36 → 1SOBS 14:44
PROVIDERS: ADMIT Internal Medicine; ATTEND Internal Medicine
DX: R19.09 Other intra-abdominal and pelvic swelling, mass and lump (principal); K57.30 Diverticulosis of large intestine without perforation or abscess without bleeding; I10 Essential (primary) hypertension; Z85.828 Personal history of other malignant neoplasm of skin; R00.1 Bradycardia, unspecified; K59.00 Constipation, unspecified; D64.9 Anemia, unspecified; E66.9 Obesity, unspecified; Z68.27 Body mass index [BMI] 27.0-27.9, adult; Z79.899 Other long term (current) drug therapy; Z82.49 Family history of ischemic heart disease and other diseases of the circulatory system; Z82.5 Family history of asthma and other chronic lower respiratory diseases; Z82.0 Family history of epilepsy and other diseases of the nervous system
CPT/HCPCS: 96376; 96361; 96374; 96375; 99285; 36415; 93005; 80053; 82150; 83690; 85025; 85610; 85730; 81003; 74177; G0378 ×2; J2270; J2405; J1885; C9113 ×2; Q9967

== ENCOUNTER → 2019-07-24 | Outpatient (CLI) | payer BC ==
[2019-07-24 14:35] LABS: Basophils # (A) 0.1 k/uL (0-0.2); Basophils % (A) 1 %; Eosinophils # (A) 0.1 k/uL (0-0.7); Eosinophils % (A) 2 %; HCT 50.3 % (39.0-53.0); Lymphocytes # (A) 1.9 k/uL (1.0-4.8); Lymphocytes % (A) 26 %; MCH 30.8 pg (25.0-35.0); MCHC 33.7 g/dL (31.0-37.0); MCV 91.3 fL (80.0-100.0); Mean Platelet Volume 6.4; Monocytes # (A) 0.4 k/uL (0-1.0); Monocytes % (A) 6 %; Neutrophils # (A) 4.6 k/uL (1.3-7.7); Neutrophils % (A) 63 %; Platelet Count 285 k/uL (150-450); RBC 5.51 m/uL (4.30-5.90); RDW 13.3 % (11.5-15.5); WBC 7.3 k/uL (3.8-10.6)
[2019-07-24 14:41] LABS: INR 0.9 (<1.2); Partial Thromboplastin Time 22.7 sec (22.0-30.0); Prothrombin Time 9.7 sec (9.0-12.0)
[2019-07-24 14:49] LABS: African American GFR (CKD) >90 (>60 ml/min/1.73 sqM); Anion Gap 7 mmol/L; Blood Urea Nitrogen 25 mg/dL (9-20); Carbon Dioxide 31 mmol/L (22-30); Chloride 104 mmol/L (98-107); Glucose 98 mg/dL (74-99); Non-African American GFR(CKD) >90 (>60 ml/min/1.73 sqM); Potassium 4.7 mmol/L (3.5-5.1); Sodium 142 mmol/L (137-145)
== END | disposition home or self-care (01) ==
LOC: LABPAT 13:03
PROVIDERS: ATTEND Thoracic Surgery (Cardiothoracic Vascular Surgery)
DX: Z01.812 Encounter for preprocedural laboratory examination (principal); Q45.8 Other specified congenital malformations of digestive system; E87.8 Other disorders of electrolyte and fluid balance, not elsewhere classified; R53.83 Other fatigue; R58 Hemorrhage, not elsewhere classified; Z51.81 Encounter for therapeutic drug level monitoring; Z79.899 Other long term (current) drug therapy
CPT/HCPCS: 36415; 80051; 82565; 82947; 84520; 85025; 85610; 85730

== ENCOUNTER 2019-07-31 06:02 | Inpatient (IN) | payer BC ==
[~2019-07-31 06:02] MED LIST changes: -DEXAMETHASONE SOD PHOSPHATE 10 MG/ML 1 ML VIAL IV ONE; -HEPARIN SODIUM,PORCINE 5,000 UNIT/ML 1 ML VIAL SQ ONE; -HYDROmorphone 0.5 MG/0.5 ML SYRINGE IVP PRN; -LACTATED RINGERS 1,000 ML IV SCH; -SCOPOLAMINE 1.5MG/72HR PATCH TRANSDERM ONE; -ceFAZolin IN SWFI 2 GM/20 ML SYRINGE IVP ONE; +fentaNYL (PF) 50 MCG/ML 2 ML AMP IVP PRN
[2019-07-31] MEDS: LACTATED RINGERS 1,000 ML IV SCH ×4 (06:43→12:03)
[2019-07-31] MEDS ORDERED: LIDOCAINE 1% 20 ML VIAL (10MG/ML) FOR IV START INTRADERMA ONE (06:45)
[2019-07-31] MEDS ORDERED: fentaNYL (PF) 50 MCG/ML 2 ML AMP IVP ONE ×2 (07:13→07:22)
[2019-07-31] MEDS: MIDAZOLAM 2 MG/2 ML VIAL IV PRN ×2 (07:22→07:23)
[2019-07-31] MEDS ORDERED: SUCCINYLCHOLINE CHLORIDE 100 MG/5 ML SYR IV ONE (07:25)
[2019-07-31] MEDS ORDERED: HYDROmorphone (PF) 1 MG/ML ONE (07:25)
[2019-07-31] MEDS ORDERED: PROPOFOL 10 MG/ML 20 ML VIAL IV ONE (07:25)
[2019-07-31] MEDS ORDERED: ROCURONIUM BROMIDE 10 MG/ML 10 ML VIAL IV ONE (07:25)
[2019-07-31] MEDS ORDERED: NEOSTIGMINE 1 MG/ML 10 ML VIAL ONE (07:25)
[2019-07-31] MEDS ORDERED: PHENYLEPHRINE-0.9% NACL SYG 1 MG/10 ML SYRINGE ONE (07:25)
[2019-07-31] MEDS ORDERED: LIDOCAINE 1% INJ 10MG/ML (20 ML MDV) ONE (07:25)
[2019-07-31] MEDS ORDERED: GLYCOPYRROLATE 0.2 MG/ML 2 ML VIAL ONE (07:25)
[2019-07-31] MEDS ORDERED: BUPIVACAINE (PF) 0.5% 30 ML VIAL SQ ONE ×2 (08:09→08:50)
--- NOTE | 2019-07-31 09:32 | P.OP ---
Date of Procedure: 07/31/19 Preoperative Diagnosis: Duplication cyst left thorax Postoperative Diagnosis: same Procedure(s) Performed: RA Thoracoscopic resection of duplication cyst left chest Anesthesia: GEM Surgeon: Alejandro Otoole Portuguese Tutor #1: Eliot Hardy Estimated Blood Loss (ml): 5 IV fluids (ml): 500 Urine output (ml): 200 Pathology: other (duplication cyst) Condition: stable Disposition: PACU Indications for Procedure: 59-year-old male with enlarging duplication cyst in the left thorax. Patient complains of cough and abdominal discomfort. Cyst has enlarged to over 7 cm in maximal diameter. Elective resection was indicated. Operative Findings: A large boggy duplication cyst was noted in the left posterior inferior sulcus. This was resected in toto. It was a relatively vascularized structure. Description of Procedure: The patient was brought to the operating room, placed supine on the operating table, anesthetized and intubated with a double-lumen endotracheal tube. Tube was positioned with fiberoptic bronchoscopy and secured. Patient was turned in the right lateral decubitus position and the left chest sterilely prepped and draped. 4 robotic ports were placed in the sixth interspace starting anteriorly and working posteriorly. 8.5 ports were used. After placement of the first port placement in the pleural space was verified and CO2 insufflation was begun. After placement of the ports, working port was placed in the 10th interspace anteriorly. The robot was docked and we began the operation. Dissection was carried out around the duplication cyst after its identity was confirmed. We gradually worked deeper and deeper into the investing tissues dividing fairly dense adhesions to the mediastinal structures as well as the diaphragm. Blood vessels were divided with bipolar cautery. Once the cyst was completely freed was placed in an Endo Catch bag and removed from the field through the working port. The robot was undocked. A chest tube was placed through the anteriormost incision and positioned posterior apically. It was secured with an 0 Ethibond suture. The lung was reinflated under thoracoscopic visualization. Rib blocks were performed at the level of the incisions with half percent Marcaine posteriorly. Incisions were closed with layers of Vicryl suture and skin glue and Band-Aid dressings applied. The patient was turned supine and extubated and transferred to recovery room in stable condition.
[2019-07-31] MEDS: HYDROmorphone 0.5 MG/0.5 ML SYRINGE IVP PRN ×4 (09:35→11:24)
--- NOTE | 2019-07-31 10:00 | XR ---
EXAMINATION TYPE: XR chest 1V portable DATE OF EXAM: 07/31/2019 COMPARISON: CT 06/01/2019 HISTORY: Post wedge resection TECHNIQUE: Single frontal view of the chest is obtained. FINDINGS: Left-sided chest tube is in place. No pneumothorax or pleural effusion. Lung volumes are l ow. Patchy density present at the right lung base. Heart size is within normal limits accounting for technique patient is rotated. Right hemidiaphragm is elevated. There are overlying cardiac leads. Pul monary vascularity and isabel within normal limits. IMPRESSION: Basilar atelectasis. Left chest tube in place. No evident pneumothorax. Expiratory rotat ed exam.
[2019-07-31] MEDS ORDERED: LACTATED RINGERS 1,000 ML IV ONE (10:20)
[2019-07-31] MEDS ORDERED: KETOROLAC 30 MG/ML 1 ML VIAL IVP ONE (10:44)
[2019-07-31] MEDS ORDERED: ACETAMINOPHEN TAB 500 MG TAB PO PRN (11:45)
[2019-07-31] MEDS ORDERED: DEXTROSE 5%-0.45% NACL 1,000 ML IV SCH (11:45)
[2019-07-31] MEDS ORDERED: IPRATROPIUM-ALBUTEROL 3 ML NEB IH PRN (11:45)
[2019-07-31] MEDS ORDERED: ONDANSETRON 4 MG/2 ML VIAL IVP PRN (11:45)
[2019-07-31] MEDS: IPRATROPIUM-ALBUTEROL 3 ML NEB IH SCH ×3 (11:59→20:26)
[2019-07-31 12:00] VITALS: BMI 26.8
[2019-07-31] MEDS: traMADol 50 MG TAB PO SCH ×3 (12:27→23:08)
[2019-07-31] MEDS: KETOROLAC 30 MG/ML 1 ML VIAL IVP SCH ×3 (12:28→23:07)
--- NOTE | 2019-07-31 13:19 | CONS ---
CONSULTATION PULMONARY/CRITICAL CARE CONSULTATION: DATE OF CONSULTATION: July 31, 2019 This is a 59-year-old male who underwent a robotically assisted removal of a bronchogenic cyst in the left pleural space. The surgery was done by Dr. Otoole. The referring doctor was Dr. Caro. This was an enlarging bronchogenic cyst in the left pleural space. It measured 6.7 x 9.4 by CAT scan. Anyway, the patient's previous scan showed a lesion that was about 4 cm in size. The patient is currently in the room following surgery. He is postop day #0. He is doing relatively well. He really has no major medical problems other than some allergies, chronic sinusitis, and mild hypertension. The patient apparently tolerated the procedure very well and I did have a chance to talk to Dr. Otoole. PAST SURGICAL HISTORY: Surgical history includes a lumbar discectomy, left inguinal hernia repair. SOCIAL HISTORY: Negative for tobacco or alcohol or illicit drug use. ALLERGIES: Allergies are denied. HOME MEDICATIONS: Home medications include Singulair, HydroDIURIL, Flonase nasal spray, and Zyrtec. 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 FAMILY HISTORY: Negative. Mother and father were healthy. REVIEW OF SYSTEMS: CONSTITUTIONAL: Negative. NEUROLOGIC: Negative. HEENT: Negative. CARDIOVASCULAR: Negative. PULMONARY: Negative. GI: Negative. : Negative. RHEUMATOLOGIC: Negative. IMMUNOLOGIC: Negative. ENDOCRINOLOGIC: Negative. DERMATOLOGIC: Negative. PHYSICAL EXAMINATION: VITAL SIGNS: Current vital signs are reviewed. His temperature is normal. Heart rate 81, respiratory rate 16, blood pressure 111/71, mean 84, and saturations on 3 L 98%. Temperature was 97 degrees. GENERAL: Resting comfortably, in no acute distress. Nasal O2 in place. HEENT: Examination is grossly unremarkable. Nasal prongs noted. NECK: Supple. Full range of motion. No adenopathy or thyromegaly. Neck veins are flat. CARDIOVASCULAR: Examination reveals regular rhythm and rate. Heart rate 67. S1, S2 normal. No S3, S4, or murmur. LUNGS: Relatively clear. Breath sounds are diminished on the left side. A few scattered rhonchi on the left side. No wheezes or crackles. ABDOMEN: Soft. Bowel sounds are heard. EXTREMITIES: Are intact. No cyanosis, clubbing, or edema. SKIN: Without rash. NEUROLOGIC: Examination is brief but nonfocal. No laboratory data to speak of. Chest x-ray is reviewed. It shows basilar atelectasis and a left chest tube in place. No pneumothorax. ASSESSMENT: 1. Robotically assisted thoracoscopic resection of a bronchogenic cyst in the left chest, postoperative day number zero. 2. History of hypertension. 3. Mild environmental allergies. 4. Sinusitis. PLAN: The patient is doing well. I did ask the nurse to put an incentive spirometer in the room. The patient should do well. Hopefully his stay is very short. The cyst was sent to the laboratory for analysis. No additional recommendations are made. We will continue to follow. Prognosis is good. MMODL / IJN: [id number] /
[2019-07-31] MEDS: HEPARIN SODIUM,PORCINE 5,000 UNIT/ML 1 ML VIAL SQ SCH ×2 (17:33→23:08)
[2019-07-31 22:22] VITALS: RESP 18
[2019-08-01 06:15] LABS: African American GFR (CKD) >90 (>60 ml/min/1.73 sqM); Anion Gap 4 mmol/L; Blood Urea Nitrogen 22 mg/dL (9-20); Calcium 8.7 mg/dL (8.4-10.2); Carbon Dioxide 28 mmol/L (22-30); Chloride 104 mmol/L (98-107); Glucose 97 mg/dL (74-99); Non-African American GFR(CKD) 86 (>60 ml/min/1.73 sqM); Sodium 136 mmol/L (137-145)
[2019-08-01 06:29] LABS: Basophils % (A) 0 %; Eosinophils # (A) 0.1 k/uL (0-0.7); Eosinophils % (A) 1 %; HCT 37.9 % (39.0-53.0); Lymphocytes # (A) 1.8 k/uL (1.0-4.8); Lymphocytes % (A) 23 %; MCH 31.7 pg (25.0-35.0); MCHC 34.2 g/dL (31.0-37.0); MCV 92.8 fL (80.0-100.0); Monocytes # (A) 0.5 k/uL (0-1.0); Monocytes % (A) 7 %; Neutrophils # (A) 5.2 k/uL (1.3-7.7); Neutrophils % (A) 67 %; Platelet Count 221 k/uL (150-450); RBC 4.08 m/uL (4.30-5.90); RDW 13.7 % (11.5-15.5); WBC 7.8 k/uL (3.8-10.6)
[2019-08-01] MEDS: KETOROLAC 30 MG/ML 1 ML VIAL IVP SCH ×2 (06:32→12:30)
[2019-08-01] MEDS: traMADol 50 MG TAB PO SCH ×2 (06:32→12:30)
[2019-08-01] MEDS: IPRATROPIUM-ALBUTEROL 3 ML NEB IH SCH ×2 (07:25→11:36)
[2019-08-01] MEDS ORDERED: PANTOPRAZOLE 40 MG TABLET PO SCH (07:30)
--- NOTE | 2019-08-01 07:52 | XR ---
EXAMINATION TYPE: XR chest 1V DATE OF EXAM: 08/01/2019 COMPARISON: Prior chest x-ray 07/31/2019 HISTORY: Post wedge resection TECHNIQUE: Single frontal view of the chest is obtained. FINDINGS: Findings are similar, there is subsegmental basilar atelectatic change. Left-sided chest t ube remains in place. No evident pneumothorax or sizable effusion. Right hemidiaphragm is elevated. H eart is stable accounting for apical lordotic technique and rotation. IMPRESSION: Basilar atelectatic changes. Indwelling chest tube as described.
[2019-08-01] MEDS: HEPARIN SODIUM,PORCINE 5,000 UNIT/ML 1 ML VIAL SQ SCH (08:05)
[2019-08-01 08:13] VITALS: TEMP 98.1
[2019-08-01] MEDS ORDERED: HYDROCHLOROTHIAZIDE 25 MG TAB PO SCH (09:00)
[2019-08-01] MEDS ORDERED: MONTELUKAST 10 MG TAB PO SCH (09:00)
[2019-08-01] MEDS ORDERED: LORATADINE 10 MG TAB PO SCH (09:00)
[2019-08-01] MEDS ORDERED: FLUTICASONE 50MCG/SPRAY NASAL 16GM EA NOSTRIL SCH (09:00)
--- NOTE | 2019-08-01 10:59 | P.PN ---
Subjective Progress Note Date: 08/01/19 Principal diagnosis: Duplication cyst left thorax. Please medical history of bronchogenic cyst which has grown in size, hypertension, and chronic sinusitis POD #1 robotic assisted thoracoscopic resection of duplication cyst left chest The patient's currently sitting up in the recliner on the cardiac stepdown unit in no acute distress. States post surgical pain is well-controlled on current medication regimen, denies shortness of breath. No air leak was present in his left pleural chest tube this morning, chest x-ray was stable, and left pleural chest tube was discontinued without incident. Patient has been ambulatory without difficulty. He has been able to swallow and tolerate diet without difficulty. No new complaints. Objective - Vital Signs Vital signs: Vital Signs Temp 98.1 F 08/01/19 08:00 Pulse 86 08/01/19 08:00 Resp 18 08/01/19 08:00 BP 117/70 08/01/19 08:00 Pulse Ox 92 L 08/01/19 08:00 Intake & Output 07/31/19 08/01/19 08/01/19 18:59 06:59 18:59 Intake Total 1640 240 Output Total 405 850 Balance 1235 -850 240 Weight 79.6 kg Intake: IV 1350 Intake, IV Titration 50 Amount ceFAZolin 2 gm In Sodium 50 Chloride 0.9% 50 ml @ 100 mls/hr IVPB Q8H [facility] Rx#: [id number] Oral 240 240 Output: Chest Tube Drainage 50 Chest Tube Left 50 Urine 400 800 Post Void Residual 0 Estimated Blood Loss 5 Other: Voiding Method Toilet # Voids 1 - Constitutional General appearance: Present: cooperative, no acute distress - Respiratory Details: Lungs sounds clear bilaterally. Respirations even, nonlabored. Currently on room air with oxygen saturation 93%. Able to achieve 1250 mL on his incentive spirometry. Strong cough. Left pleural chest tube was present to waterseal this morning, 20 mL serous drainage overnight, 210 mL drainage since surgery, no air leak was present and the left pleural chest tube was discontinued this morning. - Cardiovascular Details: S1, S2 present. Regular rate and rhythm, sinus rhythm on telemetry. Palpable peripheral pulses bilaterally. No edema present. No calf pain or tenderness noted. SCDs present. - Gastrointestinal Gastrointestinal Comment(s): Abdomen soft, nontender, nondistended. Active bowel sounds present 4 quadrants. Tolerating diet. - Genitourinary Genitourinary Comment(s): Continues to void clear, yellow urine - Integumentary Integumentary Comment(s): Skin is warm and dry with evidence of good perfusion. Left lateral chest incisi ons well approximated and covered with dry bandages - Neurologic Neurologic: Present: CNII-XII intact - Musculoskeletal Musculoskeletal: Present: gait normal, strength equal bilaterally - Psychiatric Psychiatric: Present: A&O x's 3, appropriate affect, intact judgment & insight - Allied health notes Allied health notes reviewed: nursing - Labs CBC & Chem 7: 08/01/19 05:41 08/01/19 05:41 Labs: Abnormal Lab Results - Last 24 Hours (Table) 08/01/19 08/01/19 Range/Units 05:41 05:41 RBC 4.08 L (4.30-5.90) m/uL Hct 37.9 L (39.0-53.0) % Sodium 136 L (137-145) mmol/L BUN 22 H (9-20) mg/dL - Imaging and Cardiology Chest x-ray: report reviewed, image reviewed Assessment and Plan Assessment: 1. Duplication cyst left thorax, status post robotic-assisted thoracoscopic resection 2. History of hypertension 3. Chronic sinusitis Plan: 1. Will repeat chest x-ray around 11:30. If stable and patient tolerates lunch okay we will just discharge to home this afternoon. 2. Encourage incentive spirometry use 10 times every hour while awake 3. Increase activity, ambulate as tolerated 4. Discharge instructions with appointment for Dr. Otoole placed on discharge plan 5. More recommendations to follow Time with Patient: Greater than 30
[2019-08-01 11:39] VITALS: PULSE 84
[2019-08-01 12:56] VITALS: BP 122/74
--- NOTE | 2019-08-01 13:30 | XR ---
EXAMINATION TYPE: XR chest 2V DATE OF EXAM: 08/01/2019 COMPARISON: Prior chest x-ray 08/01/2019 HISTORY: Status post chest tube removal TECHNIQUE: Frontal and lateral views of the chest are obtained. FINDINGS: There is been interval removal of the left chest tube. Subsegmental basilar atelectatic ch anges are noted. No evident pneumothorax. Heart is stable. IMPRESSION: No evident complication status post chest tube removal.
--- NOTE | 2019-08-01 13:42 | P.PN ---
Subjective Progress Note Date: 08/01/19 Principal diagnosis: Bronchogenic cyst status post thoracoscopic resection On 08/01/2019 patient seen in follow-up on selective care and, this is postop day #1 status post robotically assisted thoracoscopic resection of the bronchogenic cyst in the left chest. This morning patient is seen sitting up in a chair, in no acute distress, his chest tube has been removed this morning the spinous chest x-ray showing basilar atelectatic changes, no evident pneumothorax. Repeat chest x-ray few hours after removal of the chest x-ray showed no evident complication, no evident pneumothorax, was dynamically patient remains stable, no fever or chills, room air pulse ox is 93%. White blood cell count 7.8, hemoglobin is 13, electrolytes are within normal limits, BUN is 22 and creatinine 0.97 Objective - Vital Signs Vital signs: Vital Signs Temp 98.1 F 08/01/19 12:00 Pulse 84 08/01/19 12:00 Resp 18 08/01/19 12:00 BP 122/74 08/01/19 12:00 Pulse Ox 93 L 08/01/19 12:00 Intake & Output 07/31/19 08/01/19 08/01/19 18:59 06:59 18:59 Intake Total 1640 240 Output Total 405 850 Balance 1235 -850 240 Weight 79.6 kg Intake: IV 1350 Intake, IV Titration 50 Amount ceFAZolin 2 gm In Sodium 50 Chloride 0.9% 50 ml @ 100 mls/hr IVPB Q8H [facility] Rx#: [id number] Oral 240 240 Output: Chest Tube Drainage 50 Chest Tube Left 50 Urine 400 800 Post Void Residual 0 Estimated Blood Loss 5 Other: Voiding Method Toilet # Voids 1 1 - Exam GENERAL EXAM: Alert, pleasant, 59-year-old white male comfortable in no apparent distress. HEAD: Normocephalic/atraumatic. EYES: Normal reaction of pupils, equal size. Conjunctiva pink, sclera white. NOSE: Clear with pink turbinates. THROAT: No erythema or exudates. NECK: No masses, no JVD, no thyroid enlargement, no adenopathy. CHEST: No chest wall deformity. Symmetrical expansion. Left lateral and pos terior chest wall incisions are covered with dressings, clean dry and intact LUNGS: Equal air entry with diminished breath sounds over left lower lobe, wheeze, rhonchi or dullness. CVS: Regular rate and rhythm, normal S1 and S2, no gallops, no murmurs, no rubs ABDOMEN: Soft, nontender. No hepatosplenomegaly, normal bowel sounds, no guarding or rigidity. EXTREMITIES: No clubbing, no edema, no cyanosis, 2+ pulses and upper and lower extremities. MUSCULOSKELETAL: Muscle strength and tone normal. SPINE: No scoliosis or deformity SKIN: No rashes CENTRAL NERVOUS SYSTEM: Alert and oriented -3. No focal deficits, tone is normal in all 4 extremities. PSYCHIATRIC: Alert and oriented -3. Appropriate affect. Intact judgment and insight. - Labs CBC & Chem 7: 08/01/19 05:41 08/01/19 05:41 Labs: Abnormal Lab Results - Last 24 Hours (Table) 08/01/19 08/01/19 Range/Units 05:41 05:41 RBC 4.08 L (4.30-5.90) m/uL Hct 37.9 L (39.0-53.0) % Sodium 136 L (137-145) mmol/L BUN 22 H (9-20) mg/dL Assessment and Plan Plan: Assessment: #1. 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 History of hypertension #3. Chronic sinusitis Plan: Continue encouraging deep breathing and coughing, incentive spirometry use, tolerating ambulation, vital signs are stable, repeat chest x-ray post removal of the chest tube showed no complications, no evidence of pneumothorax, pathol ogy of the left chest bronchogenic cyst is pending, anticipate discharge home this afternoon I performed a history & physical examination of the patient and discussed their management with my nurse practitioner, Shanna Donohue. I reviewed the nurse practitioner's note and agree with the documented findings and plan of care. Lung sounds are positive for diminished breath sounds in left lower lobe the lung nugent. The findings and the impression was discussed with the patient. I attest to the documentation by the nurse practitioner. Time with Patient: Less than 30
--- NOTE | 2019-08-01 14:00 | P.DS ---
Providers Date of admission: 07/31/19 06:02 Expected date of discharge: 08/01/19 Attending physician: Alejandro Otoole Consults: 07/31/19 10:24 Consult Physician Routine Consulting Provider: Suresh Chatterjee Reason/Comments: pulmonary management Do you want consulting provider notified?: Yes Primary care physician: Ava Solano [facility] Course: FINAL DIAGNOSIS: 1. 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 Hypertension 3. Chronic sinusitis PRINCIPAL PROCEDURE: 1. Robotic assisted thoracoscopic resection of duplication cyst left chest HISTORY OF PRESENT ILLNESS: This is a 59-year-old gentleman who follows on an outpatient basis with Dr. Caro. 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 At that time, it was measured at 4 cm in size. He began to notice increasing dyspnea as well as difficulty swallowing, along with some epigastric pain and fullness which happens approximately 2-3 times a year for the last several years. He had a computed tomography scan of the abdomen and pelvis which demonstrated a markedly enlarged left pleural cyst measuring 6.7 x 9.4 cm in size present in the inferior posterior mediastinal region adjacent to the diaphragm and posterior to the heart. The patient was referred to Dr. Otoole from cardiothoracic surgery. He was recommended to undergo robotic assisted thoracoscopic resection of the cyst. The usual perioperative course was discussed in detail with the patient and his family, all risks and benefits were explained, all questions were answered, and consent was obtained to proceed with surgery. The patient was scheduled for surgery at the earliest possible date. HOSPITAL COURSE: The patient was brought to the hospital on 07/31/2019, taken to the preoperative area, prepared in the usual fashion, and subsequently taken to the operating room where Dr. Otoole performed a robotic assisted thoracoscopic resection of duplication cyst of the left chest. Upon completion of surgery the patient was extubated and taken to the recovery room for further monitoring. He was eventually admitted to 3 S. cardiac stepdown to continue his recovery. On the night of surgery he had no air leak present in his chest tube was placed to waterseal. The following morning he continued to have no air leakage, his chest x-ray was stable, and his left pleural chest tube was discontinued. Follow-up chest x-ray was stable. His oxygen was titrated down, he was tolerating oral diet, his pain was controlled, and he was ready to be discharged to home on postoperative day #. He received written and verbal instruction regarding his medications, activity restrictions, signs and symptoms requiring physician notification, and follow-up appointments. COMPLICATIONS: The patient experienced no postoperative complications. Patient Condition at Discharge: Stable Plan - Discharge Summary Discharge Rx Participant: No New Discharge Prescriptions: New Acetaminophen Tab [Tylenol] 1,000 mg PO Q6HR PRN tab PRN Reason: Fever and/ or Mild Pain Continue Fluticasone Nasal [place] [Flonase Nasal [place]] 2 spr EA NOSTRIL DAILY Montelukast [Singulair] 10 mg PO DAILY Hydrochlorothiazide [Hydrodiuril] 25 mg PO DAILY Cetirizine HCl [Zyrtec] 10 mg PO DAILY Discharge Medication List Cetirizine HCl [Zyrtec] 10 mg PO DAILY 05/03/17 [History] Fluticasone Nasal [place] [Flonase Nasal [place]] 2 spr EA NOSTRIL DAILY 05/03/17 [History] Hydrochlorothiazide [Hydrodiuril] 25 mg PO DAILY 05/03/17 [History] Montelukast [Singulair] 10 mg PO DAILY 05/03/17 [History] Acetaminophen Tab [Tylenol] 1,000 mg PO Q6HR PRN tab 08/01/19 [Rx] Follow up Appointment(s)/Referral(s): Ava Caro III, MD [Primary Care Provider] - 08/18/19 10:00 am (with Dr. Medel) Alejandro Otoole MD [STAFF PHYSICIAN] - 08/14/19 1:00 pm Activity/Diet/Wound Care/Special Instructions: DISCHARGE INSTRUCTIONS: 1. No driving for 2 weeks, or until physician gives their ok. 2. No lifting, pushing, or pulling more than 10 pounds for 2 weeks. The physician will advise of any restriction changes. 3. Continue pain control per as needed orders. Alternate acetaminophen (Tylenol) and ibuprofen (Motrin/Advil) for pain. 4. Continue with incentive spirometry and splinting until otherwise directed by the physician. 5. Leave chest tube dressing for 48 hours. After that, remove all dressings and shower daily. 6. Routine incision care. No powders, lotions, ointments on incisions. 7. Please call surgeon/ATM TECHNICIAN for temp greater than 101 F or purulent drainage from incisions. Татьяна ATM TECHNICIAN ; John Paul ATM TECHNICIAN Discharge Disposition: HOME SELF-CARE
== END 2019-08-01 14:40 | disposition home or self-care (01) | DRG 168 ==
LOC: 2ORMAIN 06:02 → EDSTATUS 10:40 → 3SCARD 11:14
PROVIDERS: ADMIT Thoracic Surgery (Cardiothoracic Vascular Surgery); ATTEND Thoracic Surgery (Cardiothoracic Vascular Surgery)
PROC: 8E0W4CZ Robotic Assisted Procedure of Trunk Region, Percutaneous Endoscopic Approach (ICD-10-PCS; 2019-07-31)
PROC: 0BBP4ZX Excision of Left Pleura, Percutaneous Endoscopic Approach, Diagnostic (ICD-10-PCS; principal; 2019-07-31 07:30)
DX: J94.8 Other specified pleural conditions (principal); I10 Essential (primary) hypertension; J32.9 Chronic sinusitis, unspecified; R13.10 Dysphagia, unspecified; Z79.899 Other long term (current) drug therapy
CPT/HCPCS: 71045; 71046; 80048; 85025; 86850; 86900; 86901; 88305; 94640

== ENCOUNTER 2023-02-02 10:28 | Emergency (ER) | payer BC ==
[2023-02-02] MEDS ORDERED: KETOROLAC 15 MG/ML 1 ML VIAL IM STA ×2 (10:45→16:11)
[2023-02-02] MEDS ORDERED: HYDROcodone/APAP 5-325MG 1 EACH TAB PO STA ×2 (10:45→16:10)
--- NOTE | 2023-02-02 10:55 | ED ---
Fall HPI - General Source: patient, EMS, RN notes reviewed Mode of arrival: EMS Limitations: no limitations - History of Present Illness MD Complaint: fall <Dorsi Toledo - Last Filed: 02/02/23 17:01> <Sotero Macias - Last Filed: 02/02/23 18:04> - General Chief Complaint: Fall Stated Complaint: Fall Time Seen by Provider: 02/02/23 10:32 - History of Present Illness Initial Comments: This is a 63-year-old male who presents to the emergency department for a fall. States that he was standing on a ladder when it fell from underneath him. He fell approximately 7 feet and landed on his buttocks. Denies hitting his head or sustaining any loss of consciousness. Currently complaining of pain to his lower back. He did have a discectomy at L5-S1 at [place] in 2013, but has not had any problems with his back since. Denies hitting his head or sustaining any loss of consciousness. Also denies any pain to the neck. He does still have sensation in his legs and is able to move them without difficulty. Denies any fevers, chills, sore throat, cough, dyspnea, chest pain, palpitations, abdominal pain, nausea, vomiting, diarrhea, or headaches. (Doris Toledo) - Related Data Home Medications Medication Instructions Recorded Confirmed Cetirizine HCl [Zyrtec] 10 mg PO DAILY 05/03/17 02/02/23 Fluticasone Nasal [place] [Flonase 2 spr EA NOSTRIL DAILY 05/03/17 02/02/23 Nasal [place]] Montelukast [Singulair] 10 mg PO DAILY 05/03/17 02/02/23 hydroCHLOROthiazide [Hydrodiuril] 25 mg PO DAILY 05/03/17 02/02/23 Sildenafil Citrate [Sildenafil] 40 - 100 mg PO DAILY PRN 02/02/23 02/02/23 Previous Rx's Medication Instructions Recorded HYDROcodone/APAP 10-325MG [R[place] 1 tab PO Q6HR PRN 3 Days #12 tab 02/02/23 10-325] Ketorolac [Toradol] 10 mg PO Q6HR PRN #12 tab 02/02/23 Allergies Allergy/AdvReac Type Severity Reaction Status Date / Time No Known Allergies Allergy Verified 02/02/23 10:29 Review of Systems ROS Other: All systems not noted in ROS Statement are negative. <Doris Toledo - Last Filed: 02/02/23 17:01> ROS Other: All systems not noted in ROS Statement are negative. <Sotero Macias - Last Filed: 02/02/23 18:04> ROS Statement: Those systems with pertinent positive or pertinent negative responses have been documented in the HPI. Past Medical History Past Medical History: Blood Disorder, Cancer, Hypertension Additional Past Medical History / Comment(s): basal cell SKIN CANCER, anemia as , bronchitis History of Any Multi-Drug Resistant Organisms: None Reported Past Surgical History: Back Surgery, Hernia Repair Additional Past Surgical History / Comment(s): discectomy, cataract surgery with implants Past Anesthesia/Blood Transfusion Reactions: Motion Sickness Past Psychological History: No Psychological Hx Reported Past Alcohol Use History: Occasional Past Drug Use History: None Reported - Past Family History Mother Family Medical History: Hypertension Father Family Medical History: COPD Additional Family Medical History / Comment(s): pacemaker Sister(s) Family Medical History: Neurologic Disorder Additional Family Medical History / Comment(s): MS <Doris Toledo - Last Filed: 02/02/23 17:01> General Exam Limitations: no limitations General appearance: alert, in no apparent distress Head exam: Present: atraumatic, normocephalic, normal inspection Neck exam: Present: normal inspection. Absent: tenderness, meningismus, lymphadenopathy Respiratory exam: Present: normal lung sounds bilaterally. Absent: respiratory distress, wheezes, rales, rhonchi, stridor Cardiovascular Exam: Present: regular rate, normal rhythm, normal heart sounds. Absent: systolic murmur, diastolic murmur, rubs, gallop, clicks Extremities exam: Present: other (Full active and passive range of motion of the bilateral lower extremities. Sensation intact bilaterally. 2+ DP and PT pulses.) Neurological exam: Present: alert, oriented X3, CN II-XII intact Psychiatric exam: Present: normal affect, normal mood Skin exam: Present: warm, dry, intact, normal color. Absent: rash <Doris Toledo - Last Filed: 02/02/23 17:01> Course Vital Signs 02/02/23 02/02/23 02/02/23 10:29 14:41 16:46 Temperature 97.8 F 98.4 F Pulse Rate 74 76 58 L Respiratory 16 16 18 Rate Blood Pressure 142/87 114/91 125/79 O2 Sat by Pulse 99 99 99 Oximetry Medical Decision Making - Radiology Data Radiology results: report reviewed, image reviewed <Doris Toledo - Last Filed: 02/02/23 17:01> - Medical Decision Making This is a 63-year-old male who presents to the emergency department for a fall. Was pt. sent in by a medical professional or institution? @ -No Did you speak to anyone other than the patient for history? @ -No Did you review nursing and triage notes? @ -Yes, and I agree, it is accurate with regards to the patient's symptoms. Were old charts reviewed? @ -No Differential Diagnosis? @ -Differential Back Injury: Fracture, disc herniation, contusion, this is not meant to be an all-inclusive list. EKG interpreted by me (3pts min.)? @ -Not obtained X-rays interpreted by me (1pt min.)? @ -Not obtained CT interpreted by me (1pt min.)? @ -Computed tomography scan of the thoracic, lumbar, and sacral spine obtained. My interpretation identifies an L2 compression fracture. U/S interpreted by me (1pt. min.)? @ -None What testing was considered but not performed? (CT, X-rays, U/S, labs)? Why? @ -None What meds were considered but not given? Why? @ -None Did you discuss the management of the patient with other professionals? @ -Yes, case discussed with Russell at [facility]. He recommended an [place] LSO brace for the patient and precautions against bending, lifting, or ot her activities that could further compromise him. Did you reconcile home meds? @ -No Was smoking cessation discussed for >3mins.? @ -No Was critical care preformed (if so, how long)? @ -No Were there social determinants of health that impacted care today? How? (Home lessness, low income, unemployed, alcoholism, drug addiction, transportation, low edu. Level, literacy, decrease access to med. care, detention, rehab)? @ -No Was there de-escalation of care discussed even if they declined? (Discuss DNR or withdrawal of care, Hospice)? @ -No What co-morbidities impacted this encounter? (DM, HTN, Smoking, COPD, CAD, Cancer, CVA, Hep., AIDS, mental health diagnosis, sleep apnea, morbid obesity)? @ -None Was patient admitted / discharged? @ -Discharged. Computed tomography scan of the thoracic, lumbar, and sacral spine obtained revealing an L2 compression fracture with posterior retropulsion into the anterior spinal canal. This was discussed with Russell at [facility]. They advised that the patient can be discharged home, however he'll need an LSO brace, preferably an [place] LSO The hospital unfortunately is no longer carrying back braces. We spoke with multiple medical supply stores and we were able to get the patient a [employer]ace [employer] LSO brace, which was delivered to the hospital. The patient was put in the back brace before discharge and given very strict precautions against bending, lifting, or doing any other activity that could potentially worsen this injury. We were originally going to have him follow-up with [facility], however he states that he would prefer to go to [facility] where he had his previous back surgery in 2013. Advised that this is completely fine, however he will need to contact the office to make sure that they can see him this week. Pain was well controlled with Toradol and R[place]ford. Prescription for Toradol and [place] provided with dosing instructions reviewed. Patient is instructed to take the Toradol with Tylenol if needed and avoid any other kzsh-xyn-ysevezr anti-inflammatories such as ibuprofen with the Toradol. Also advised that the Rutherford is sedating and he should avoid driving or operating machinery when taking this. Return parameters were discussed in that if he develops any signs of vascular compromise, such as loss of sensation in his lower extremities, he should return to the emergency Department immediately. Undiagnosed new problem with uncertain prognosis? @ -None Drug Therapy requiring intensive monitoring for toxicity (Heparin, Nitro, Insulin, Cardizem)? @ -None Were any procedures done? @ -None Diagnosis/symptom? @ -L2 compression fracture Acute, or Chronic, or Acute on Chronic? @ -Acute Uncomplicated (without systemic symptoms) or Complicated (systemic symptoms)? @ -Uncomplicated Side effects of treatment? @ -None Exacerbation, Progression, or Severe Exacerbation] @ -Not applicable Poses a threat to life or bodily function? @ -This will have some impact on his mobility for a period of time. Return precautions reviewed in depth, the patient is instructed to return to the emergency department with any new, worsening, or concerning symptoms. Patient verbalized understanding. This case was discussed in detail with the attending ED physician, Dr. Reyes. Presentation, findings, and treatment plan discussed in detail as well. (Doris Toledo) Disposition Is patient prescribed a controlled substance at d/c from ED?: Yes When asked, does pt state using other controlled substances?: No If prescribed controlled substance>3 days was MAPS reviewed?: Prescribed <3 Days <Doris Toledo - Last Filed: 02/02/23 17:01> <Sotero Macias - Last Filed: 02/02/23 18:04> Clinical Impression: L2 vertebral fracture Disposition: HOME SELF-CARE Condition: Fair Instructions (If sedation given, give patient instructions): Vertebral Compression Fracture (ED) Additional Instructions: Return to the emergency department with any new, worsening, or concerning symptoms, especially if you develop decreased sensation or numbness in your legs. Make sure that you wear the back brace provided and avoid any bending, li fting, or excess activity. Follow up with your orthopedic provider this week. Prescriptions: HYDROcodone/APAP 10-325MG [[place] 10-325] 1 tab PO Q6HR PRN 3 Days #12 tab PRN Reason: Pain Ketorolac [Toradol] 10 mg PO Q6HR PRN #12 tab PRN Reason: Pain Referrals: Ava Caro III, MD [Primary Care Provider] - 1-2 days
--- NOTE | 2023-02-02 12:36 | CT ---
EXAMINATION TYPE: CT thor lumbar spine wo con, CT sacrum wo con DATE OF EXAM: 02/02/2023 COMPARISON: None. HISTORY: fell off ladder with pain CT DLP: 1056.6 (accession [id number]), 650.5 (accession [id number]) mGycm Automated exposure control for dose reduction was used. FINDINGS: Thoracolumbar spine shows satisfactory alignment. There are 5 lumbar-type vertebra. There is mild to moderate compression fracture deformity involving the L2 vertebra particularly superior endplate. Oswaldo ency extends from anterior to posterior vertebral body margin and superior endplate. There is some sc lerosis present. Findings are suggestive acute or subacute in age. Remainder of the thoracolumbar spi ne shows no additional fracture. Slight posterior retropulsion of the superior L2 vertebra is noted i nto the anterior spinal canal measuring 3 to 4 mm on sagittal images. Some colonic diverticula are seen. Visualized lungs are clear. Sacrum and coccyx show no acute displaced fracture. Sacral alar maintained. There is nonspecific 8mm sclerotic lesion right iliac bone favoring benign bone island. No free fluid in the pelvis is seen. P rostate gland measures upper limits of normal in size. 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
[2023-02-02 16:48] VITALS: BP 125/79; PULSE 58; RESP 18; TEMP 98.4
== END 2023-02-02 18:18 | disposition home or self-care (01) ==
LOC: EC 10:28
DX: S32.029A Unspecified fracture of second lumbar vertebra, initial encounter for closed fracture (principal); I10 Essential (primary) hypertension; Z79.899 Other long term (current) drug therapy; W11.XXXA Fall on and from ladder, initial encounter
CPT/HCPCS: 72128; 72131; 72192; 96372; 99285

== ENCOUNTER → 2023-02-08 | Outpatient (CLI) | payer BC ==
--- NOTE | 2023-02-08 13:07 | XR ---
EXAMINATION TYPE: XR lumbosacral spine min 4V DATE OF EXAM: 02/08/2023 12:29 PM INDICATION: Patient age:Male; 63 years old; Reason for study: S32.029A; COMPARISON: CT 02/02/2022. TECHNIQUE: Frontal, lateral , bilateral oblique and coned in L5-S1 lateral views of the spine. FINDINGS: Compression deformity of the L2 vertebral body with at least 25% to 50% height loss with ac yvrose/subacute fracture line. This is most pronounced anteriorly. The L1 vertebral body has some mild w edging is also new from 2019. There is multilevel disc degeneration changes with osteophyte formation and disc space narrowing. Multilevel facet joint arthropathy is present. At least mild neural forami nal stenosis at L5-S1. IMPRESSION: Compression deformity of L2 vertebral body as seen on prior CT 02/02/2023. No significant change from CT, this is new from 2019.
== END | disposition home or self-care (01) ==
LOC: RADXRMAIN 12:03
PROVIDERS: ATTEND Specialist
DX: S32.029A Unspecified fracture of second lumbar vertebra, initial encounter for closed fracture (principal)
CPT/HCPCS: 72110

== ENCOUNTER 2023-10-15 01:13 | Observation (INO) | payer BC ==
[2023-10-15 01:29] VITALS: TEMP 98
[2023-10-15] MEDS: NITROGLYCERIN SL TABS 0.4 MG TAB SUBLINGUAL STA (02:15)
[2023-10-15] MEDS: ASPIRIN 81 MG PO STA (02:15)
[2023-10-15 02:28] LABS: Basophils # (A) 0.1 k/uL (0-0.2); Basophils % (A) 1 %; Eosinophils # (A) 0.1 k/uL (0-0.7); Eosinophils % (A) 1 %; HCT 47.5 % (39.0-53.0); HGB 16.3 gm/dL (13.0-17.5); Lymphocytes # (A) 2.7 k/uL (1.0-4.8); Lymphocytes % (A) 29 %; MCH 30.5 pg (25.0-35.0); MCHC 34.2 g/dL (31.0-37.0); Mean Platelet Volume 7.1; Monocytes # (A) 0.6 k/uL (0-1.0); Monocytes % (A) 7 %; Neutrophils # (A) 5.6 k/uL (1.3-7.7); Neutrophils % (A) 60 %; Platelet Count 256 k/uL (150-450); RBC 5.34 m/uL (4.30-5.90); RDW 13.2 % (11.5-15.5); WBC 9.4 k/uL (3.8-10.6)
--- NOTE | 2023-10-15 02:38 | XR ---
EXAM: XR Chest, 2 Views CLINICAL HISTORY: ITS.REASON XR Reason: Chest Pain TECHNIQUE: Frontal and lateral views of the chest. COMPARISON: 08/01/19 FINDINGS: Lungs: Unremarkable. No consolidation. Pleural space: Unremarkable. No pleural effusion or pneumothorax. Heart: Unremarkable. No cardiomegaly or pulmonary vascular congestion. Bones/joints: No acute fracture. No dislocation. IMPRESSION: No evidence of acute cardiopulmonary disease.
[2023-10-15 02:43] LABS: ALT 27 U/L (4-49); AST 25 U/L (17-59); African American GFR (CKD) >90 (>60 ml/min/1.73 sqM); Albumin 4.3 g/dL (3.5-5.0); Alkaline Phosphatase 58 U/L (38-126); Anion Gap 8 mmol/L; Blood Urea Nitrogen 35 mg/dL (9-20); Calcium 9.5 mg/dL (8.4-10.2); Carbon Dioxide 23 mmol/L (22-30); Chloride 108 mmol/L (98-107); Glucose 106 mg/dL (74-99); Magnesium 2.2 mg/dL (1.6-2.3); Non-African American GFR(CKD) >90 (>60 ml/min/1.73 sqM); Potassium 3.5 mmol/L (3.5-5.1); Sodium 139 mmol/L (137-145); Total Bilirubin 0.9 mg/dL (0.2-1.3); Total Protein 7.1 g/dL (6.3-8.2)
[2023-10-15 02:48] LABS: INR 0.9 (<1.2)
[2023-10-15 02:49] LABS: Prothrombin Time 10.2 sec (10.0-12.5)
[2023-10-15 03:28] LABS: Appearance,Urine Clear (Clear); Bilirubin,Urine Negative (Negative); Blood,Urine Negative (Negative); Color,Urine Yellow; Glucose,Urine (UA) Negative (Negative); Ketones,Urine Negative (Negative); Leukocyte Esterase,Urine Negative (Negative); Nitrite,Urine Negative (Negative); Protein,Urine Trace (Negative); Urobilinogen,Urine <2.0 mg/dL (<2.0)
--- NOTE | 2023-10-15 04:08 | ED ---
Chest Pain HPI - General Chief Complaint: Chest Pain Stated Complaint: chest pain Time Seen by Provider: 10/15/23 01:33 Source: patient Mode of arrival: ambulatory Limitations: no limitations - History of Present Illness Initial Comments: 63-year-old male with past medical history significant for hypertension, non- smoker, presenting to the ED with a chief complaint of chest pain. Patient states last night when he was trying to go to the bed started to experience some pain to the left side of his chest. States that this persisted until he fell asleep and was gone when he woke up this morning. States tonight was trying to go to sleep again and noted onset of the same chest pain. Pain does not radiate. No associated palpitation shortness of breath lightheadedness dizziness nausea vomiting. Patient states pain is pressure-like in sensation. No other symptoms at this time. No other complaints. Patient does note significant stress lately as his father last night. - Related Data Home Medications Medication Instructions Recorded Confirmed Cetirizine HCl [Zyrtec] 10 mg PO DAILY 05/03/17 02/02/23 Fluticasone Nasal [place] [Flonase 2 spr EA NOSTRIL DAILY 05/03/17 02/02/23 Nasal [place]] Montelukast [Singulair] 10 mg PO DAILY 05/03/17 02/02/23 hydroCHLOROthiazide [Hydrodiuril] 25 mg PO DAILY 05/03/17 02/02/23 Sildenafil Citrate [Sildenafil] 40 - 100 mg PO DAILY PRN 02/02/23 02/02/23 Previous Rx's Medication Instructions Recorded HYDROcodone/APAP 10-325MG [Rosalia 1 tab PO Q6HR PRN 3 Days #12 tab 02/02/23 10-325] Ketorolac [Toradol] 10 mg PO Q6HR PRN #12 tab 02/02/23 Allergies Allergy/AdvReac Type Severity Reaction Status Date / Time No Known Allergies Allergy Verified 10/15/23 01:21 Review of Systems ROS Statement: Those systems with pertinent positive or pertinent negative responses have been documented in the HPI. ROS Other: All systems not noted in ROS Statement are negative. Past Medical History Past Medical History: Blood Disorder, Cancer, Hypertension Additional Past Medical History / Comment(s): basal cell SKIN CANCER, anemia as infant, bronchitis History of Any Multi-Drug Resistant Organisms: None Reported Past Surgical History: Back Surgery, Hernia Repair Additional Past Surgical History / Comment(s): discectomy, cataract surgery with implants Past Anesthesia/Blood Transfusion Reactions: Motion Sickness Past Psychological History: No Psychological Hx Reported Smoking Status: Never smoker Past Alcohol Use History: Occasional Past Drug Use History: None Reported - Past Family History Mother Family Medical History: Hypertension Father Family Medical History: COPD Additional Family Medical History / Comment(s): pacemaker Sister(s) Family Medical History: Neurologic Disorder Additional Family Medical History / Comment(s): MS General Exam Limitations: no limitations General appearance: alert, in no apparent distress Head exam: Present: normocephalic Eye exam: Present: normal appearance Neck exam: Present: normal inspection Respiratory exam: Present: normal lung sounds bilaterally Cardiovascular Exam: Present: regular rate GI/Abdominal exam: Present: soft Extremities exam: Present: normal inspection Back exam: Present: normal inspection Neurological exam: Present: alert, oriented X3 Skin exam: Present: warm, dry Course Vital Signs 10/15/23 10/15/23 10/15/23 01:18 02:00 03:25 Temperature 98 F Pulse Rate 65 72 62 Respiratory 18 16 13 Rate Blood Pressure 151/93 130/90 O2 Sat by Pulse 98 96 97 Oximetry Chest Pain MDM - MDM Was pt. sent in by a medical professional or institution ([facility], SENIOR INFORMATICA ETL DEVELOPER, urgent care, hospital, or usp...) When possible be specific @ -No Did you speak to anyone other than the patient for history (EMS, parent, family, police, friend...)? What history was obtained from this source @ -No Did you review nursing and triage notes (agree or disagree)? Why? @ -I reviewed and agree with nursing and triage notes Were old charts reviewed (outside hosp., previous admission, EMS record, old EKG, old radiological studies, urgent care reports/EKG's, usp records)? Report findings @ -No old charts were reviewed Differential Diagnosis (chest pain, altered mental status, abdominal pain women, abdominal pain men, vaginal bleeding, weakness, fever, dyspnea, syncope, headache, dizziness, GI bleed, back pain, seizure, CVA, palpatations, mental health, musculoskeletal)? @ -Differential Chest Pain: Stable Angina, Unstable Angina, STEMI, NSTEMI Aortic Dissection, Pneumothorax, Musculoskeletal, Esophageal Spasm GERD, Cholecystitis, Pancreatitis, Zoster, this is not meant to be an all-inclusive list. EKG interpreted by me (3pts min.). @ -EKG interpreted by me showing a sinus rhythm with a incomplete right bundle branch block at [address] and T wave changes. IA 190, QRS 100, QT/QTc 392/413. X-rays interpreted by me (1pt min.). @ -Chest x-ray interpreted by me showing no evidence of acute finding. CT interpreted by me (1pt min.). @ -None done U/S interpreted by me (1pt. min.). @ -None done What testing was considered but not performed or refused? (CT, X-rays, U/S, labs)? Why? @ -None What meds were considered but not given or refused? Why? @ -None Did you discuss the management of the patient with other professionals (professionals i.e. , PA, SENIOR INFORMATICA ETL DEVELOPER, lab, RT, psych nurse, medical social consultant, political worker, teacher, special officer, case reviewer)? Give summary @ -No Was smoking cessation discussed for >3mins.? @ -No Was critical care preformed (if so, how long)? @ -No Were there social determinants of health that impacted care today? How? (Homelessness, low income, unemployed, alcoholism, drug addiction, transportation, low edu. Level, literacy, decrease access to med. care, prison, rehab)? @ -No Was there de-escalation of care discussed even if they declined (Discuss DNR or withdrawal of care, Hospice)? DNR status @ -No What co-morbidities impacted this encounter? (DM, HTN, Smoking, COPD, CAD, Cancer, CVA, ARF, Chemo, Hep., AIDS, mental health diagnosis, sleep apnea, morbid obesity)? @ -Hypertension Was patient admitted / discharged? Hospital course, mention meds given and route, prescriptions, significant lab abnormalities, going to OR and other pertinent info. @ -Admission 63-year-old male presenting to the ED with chief complaint of chest pain. At this time workup including CBC, CMP initial troponin unremarkable. EKG showed an incomplete right bundle branch block with nonspecific changes. Patient will be admitted to [facility] with consult to cardiology to rule out ACS. Discussed plan of care with patient and family who are in agreement. Undiagnosed new problem with uncertain prognosis? @ -No Drug Therapy requiring intensive monitoring for toxicity (Heparin, Nitro, Insulin, Cardizem)? @ -No Were any procedures done? @ -No Diagnosis/symptom? @ -Chest pain Acute, or Chronic, or Acute on Chronic? @ -Acute Uncomplicated (without systemic symptoms) or Complicated (systemic symptoms)? @ -Uncomplicated Side effects of treatment? @ -No Exacerbation, Progression, or Severe Exacerbation? @ -No Poses a threat to life or bodily function? How? (Chest pain, [place], OR, pneumonia, PE, COPD, DKA, ARF, appy, cholecystitis, CVA, Diverticulitis, Homicidal, Suicidal, threat to staff... and all critical care pts) @ -No Disposition Clinical Impression: Chest pain Disposition: ADMITTED IP TO THIS HOSP Condition: Good Referrals: Usman aCstillo DO [Primary Care Provider] - 1-2 days Time of Disposition: 04:20
[2023-10-15] MEDS ORDERED: NALOXONE 0.4 MG/ML 1 ML VIAL IV PRN (04:21)
[2023-10-15] MEDS ORDERED: ONDANSETRON 4 MG/2 ML VIAL IVP PRN (04:21)
[2023-10-15] MEDS ORDERED: ACETAMINOPHEN TAB 325 MG TAB PO PRN (04:21)
[2023-10-15] MEDS ORDERED: KETOROLAC 15 MG/ML 1 ML VIAL IVP PRN (04:21)
[2023-10-15] MEDS: SODIUM CHLORIDE 0.9% 1,000 ML IV SCH (04:36)
[2023-10-15 08:20] VITALS: BP 126/80; PULSE 75; RESP 16
[2023-10-15] MEDS: hydroCHLOROthiazide 25 MG TAB PO SCH (08:50)
[2023-10-15] MEDS ORDERED: MAG HYDROX/AL HYDROX/SIMETH 30 ML CUP PO PRN (09:12)
[2023-10-15] MEDS: LORATADINE 10 MG TAB PO SCH (10:56)
[2023-10-15] MEDS: FLUTICASONE 50MCG/SPRAY NASAL 16GM EA NOSTRIL SCH (10:56)
[2023-10-15] MEDS: MONTELUKAST 10 MG TAB PO SCH (10:56)
--- NOTE | 2023-10-15 11:17 | P.CRDCN ---
History of Present Illness Consult date: 10/15/23 Consult reason: chest pain History of present illness: History of present illness: This is a 63-year-old male with no previous cardiac history does not follow with a engineer technical staff, past medical history of hypertension. Patient states that his dad yesterday and he is at increased stress lately. He complains of left-sided chest pain that started on Sunday when he was laying in bed. He turned and trying to change position but he was still having it. He was able to fall asleep but then it woke him up again. He is normally quite active. Deep breathing does not make the pain worse. No palpitations, no dizziness or lightheadedness, no cough, no lower extremity edema. No history of smoking. No history of asthma or COPD. Patient is seen today in the emergency center waiting for a bed on the observation unit. EKG sinus rhythm with no acute ST changes. Chest x-ray: No acute process CBC within normal limits. INR 0.9. Chloride 108, BUN 35, creatinine 0.78. Troponin negative x 2. Liver function test within normal limits. Urinalysis negative for infection. Home cardiac medications: Hydrochlorothiazide 25 mg daily. Review Of Systems: At the time of my exam: CONSTITUTIONAL: Denies fever or chills. HEENT: Denies blurred vision, vision changes, or eye pain. Denies hemoptysis CARDIOVASCULAR: Denies chest pain. Denies orthopnea. Denies PND. Denies palpitations RESPIRATORY: Denies shortness of breath. GASTROINTESTINAL: Denies abdominal pain. Denies nausea or vomiting. HEMATOLOGIC: Denies bleeding disorders. GENITOURINARY: Denies any blood in urine. SKIN: Denies pruitis. Denies rash. Physical examination: Gen: This is a 63-year-old male resting and appears to be in no acute distress VS: reviewed HEENT: Head is atraumatic, normocephalic. Pupils equal, round. Sclerae is anicteric. NECK: Supple. No JVD. LUNGS: Clear to auscultation. No wheezes or rhonchi. No intercostal retractions. HEART: Regular rate and rhythm. Systolic murmur. No chest wall tenderness. ABDOMEN: Soft No tenderness. EXTREMITIES: No pedal edema. No calf tenderness. NEUROLOGICAL: Patient is awake, alert and oriented x3. Assessment: Atypical chest pain, acute coronary syndrome ruled out Hypertension Plan: Obtain stress echocardiogram today Obtain 2-D echocardiogram and Doppler study to assess cardiac structure and fun ction If stress echocardiogram and echocardiogram are unremarkable, patient is cleared for discharge from cardiology. Thank you kindly for this consultation. Nurse practitioner note has been reviewed, I agree with documented findings and plan of care. Patient was seen and examined. Past Medical History Past Medical History: Blood Disorder, Cancer, Hypertension Additional Past Medical History / Comment(s): basal cell SKIN CANCER, anemia as infant, bronchitis History of Any Multi-Drug Resistant Organisms: None Reported Past Surgical History: Back Surgery, Hernia Repair Additional Past Surgical History / Comment(s): discectomy, cataract surgery with implants Past Anesthesia/Blood Transfusion Reactions: Motion Sickness Past Psychological History: No Psychological Hx Reported Smoking Status: Never smoker Past Alcohol Use History: Occasional Past Drug Use History: None Reported - Past Family History Mother Family Medical History: Hypertension Father Family Medical History: COPD Additional Family Medical History / Comment(s): pacemaker Sister(s) Family Medical History: Neurologic Disorder Additional Family Medical History / Comment(s): MS Medications and Allergies Home Medications Medication Instructions Recorded Confirmed Type Cetirizine HCl [Zyrtec] 10 mg PO DAILY 05/03/17 10/15/23 History Fluticasone Nasal [place] [Flonase 2 spr EA NOSTRIL DAILY 05/03/17 10/15/23 History Nasal [place]] Montelukast [Singulair] 10 mg PO DAILY 05/03/17 10/15/23 History hydroCHLOROthiazide [Hydrodiuril] 25 mg PO DAILY 05/03/17 10/15/23 History Allergies Allergy/AdvReac Type Severity Reaction Status Date / Time No Known Allergies Allergy Verified 10/15/23 07:16 Physical Exam Vitals: Vital Signs Temp Pulse Resp BP Pulse Ox 10/15/23 06:09 72 12 107/71 95 10/15/23 05:18 60 12 112/74 96 10/15/23 04:23 64 14 118/74 96 10/15/23 03:25 62 13 97 10/15/23 02:00 72 16 130/90 96 10/15/23 01:18 98 F 65 18 151/93 98 Intake and Output 02/04/24 02/05/24 02/05/24 22:59 06:59 14:59 Other: Weight 80.739 kg Results 10/15/23 02:17 10/15/23 02:17 Cardiac Enzymes 10/15/23 10/15/23 Range/Units 02:17 02:17 AST 25 (17-59) U/L Troponin I <0.012 (0.000-0.034) ng/mL Coagulation 10/15/23 Range/Units 02:17 PT 10.2 (10.0-12.5) sec APTT 21.0 L (22.0-30.0) sec CBC 10/15/23 Range/Units 02:17 WBC 9.4 (3.8-10.6) k/uL RBC 5.34 (4.30-5.90) m/uL Hgb 16.3 (13.0-17.5) gm/dL Hct 47.5 (39.0-53.0) % Plt Count 256 (150-450) k/uL Comprehensive Metabolic Panel 10/15/23 Range/Units 02:17 Sodium 139 (137-145) mmol/L Potassium 3.5 (3.5-5.1) mmol/L Chloride 108 H (98-107) mmol/L Carbon Dioxide 23 (22-30) mmol/L BUN 35 H (9-20) mg/dL Creatinine 0.78 (0.66-1.25) mg/dL Glucose 106 H (74-99) mg/dL Calcium 9.5 (8.4-10.2) mg/dL AST 25 (17-59) U/L ALT 27 (4-49) U/L Alkaline Phosphatase 58 (38-126) U/L Total Protein 7.1 (6.3-8.2) g/dL Albumin 4.3 (3.5-5.0) g/dL Current Medications Generic Name Dose Route Start Last Admin Trade Name Freq PRN Reason Stop Dose Admin Acetaminophen 650 mg 10/15/23 04:21 Acetaminophen Tab 325 Mg Tab PO Q6HR PRN Mild Pain or Fever > 100.5 Sodium Chloride 1,000 mls @ 90 mls/hr 10/15/23 04:30 10/15/23 04:36 Saline 0.9% IV 90 mls/hr .[id number] RADHA Administration Ketorolac Tromethamine 15 mg 10/15/23 04:21 Ketorolac 15 Mg/Ml 1 Ml Vial IVP 10/18/23 04:22 Q6HR PRN Moderate Pain (Scale 4 to 6) Naloxone HCl 0.2 mg 10/15/23 04:21 Naloxone 0.4 Mg/Ml 1 Ml Vial IV Q2M PRN Opioid Reversal Ondansetron HCl 4 mg 10/15/23 04:21 Ondansetron 4 Mg/2 Ml Vial IVP Q8HR PRN Nausea And Vomiting Intake and Output 10/14/23 10/15/23 10/15/23 22:59 06:59 14:59 Other: Weight 80.739 kg 10/15/23 02:17 10/15/23 02:17
--- NOTE | 2023-10-15 13:23 | P.HPIM ---
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 * Patient said symptom onset was 1 day prior started having left-sided chest pain. The pain persisted through sleep and he woke up with pain. Again patient was trying to sleep however chest pain persisted patient decided to come to the ER to seek further attention. Patient stated this was not associated with diaphoresis, nausea, vomiting, dizziness or palpitation. Patient stated he had pressure-like sensation in the chest. Patient stated his father yesterday. Patient said he has been under a lot of stress recently * Workup initiated in ER included EKG which showed sinus rhythm, left axis deviation. Initial troponin obtained was negative patient to be admitted to medical floor with consultation from cardiology for further manage REVIEW OF SYSTEMS: Chest pain noted at the time of presentation CONSTITUTIONAL: No fever, no malaise, no fatigue. HEENT: No recent visual problems or hearing problems. Denied any sore throat. CARDIOVASCULAR: Chest pain noted at the time of presentation PULMONARY: No shortness of breath, no cough, no hemoptysis. GASTROINTESTINAL: No diarrhea, no nausea, no vomiting, no abdominal pain. NEUROLOGICAL: No headaches, no weakness, no numbness. HEMATOLOGICAL: Denies any bleeding or petechiae. GENITOURINARY: Denies any burning micturition, frequency, or urgency. MUSCULOSKELETAL/RHEUMATOLOGICAL: Denies any joint pain, swelling, or any muscle pain. ENDOCRINE: Denies any polyuria or polydipsia. PHYSICAL EXAMINATION: GENERAL: The patient is alert and oriented x3, not in any acute distress. Well developed, well nourished. HEENT: Pupils are round and equally reacting to light. EOMI. CARDIOVASCULAR: S1 and S2 present. No murmurs, rubs, or gallops. PULMONARY: Chest is clear to auscultation, no wheezing or crackles. ABDOMEN: Soft, nontender, nondistended, normoactive bowel sounds. No palpable organomegaly. MUSCULOSKELETAL: No joint swelling or deformity. EXTREMITIES: No cyanosis, clubbing, or pedal edema. NEUROLOGICAL: Gross neurological examination did not reveal any focal deficits. SKIN: No rashes. Past Medical History Past Medical History: Blood Disorder, Cancer, Hypertension Additional Past Medical History / Comment(s): basal cell SKIN CANCER, anemia as , bronchitis History of Any Multi-Drug Resistant Organisms: None Reported Past Surgical History: Back Surgery, Hernia Repair Additional Past Surgical History / Comment(s): discectomy, cataract surgery with implants Past Anesthesia/Blood Transfusion Reactions: Motion Sickness Past Psychological History: No Psychological Hx Reported Smoking Status: Never smoker Past Alcohol Use History: Occasional Past Drug Use History: None Reported - Past Family History Mother Family Medical History: Hypertension Father Family Medical History: COPD Additional Family Medical History / Comment(s): pacemaker Sister(s) Family Medical History: Neurologic Disorder Additional Family Medical History / Comment(s): MS Medications and Allergies Home Medications Medication Instructions Recorded Confirmed Type Cetirizine HCl [Zyrtec] 10 mg PO DAILY 05/03/17 10/15/23 History Fluticasone Nasal [place] [Flonase 2 spr EA NOSTRIL DAILY 05/03/17 10/15/23 Histo ry Nasal [place]] Montelukast [Singulair] 10 mg PO DAILY 05/03/17 10/15/23 History hydroCHLOROthiazide [Hydrodiuril] 25 mg PO DAILY 05/03/17 10/15/23 History Allergies Allergy/AdvReac Type Severity Reaction Status Date / Time No Known Allergies Allergy Verified 10/15/23 07:16 Physical Exam Vitals: Vital Signs Temp Pulse Pulse Resp BP BP Pulse Ox 10/15/23 08:03 75 16 126/80 97 10/15/23 06:09 72 12 107/71 95 10/15/23 05:18 60 12 112/74 96 10/15/23 04:23 64 14 118/74 96 10/15/23 03:25 62 13 97 10/15/23 02:00 72 16 130/90 96 10/15/23 01:18 98 F 65 18 151/93 98 Intake and Output 10/14/23 10/15/23 10/15/23 22:59 06:59 14:59 Other: Weight 80.739 kg Results CBC & Chem 7: 10/15/23 02:17 10/15/23 02:17 Labs: Abnormal Lab Results - Last 24 Hours (Table) 10/15/23 10/15/23 10/15/23 Range/Units 02:17 02:17 02:17 APTT 21.0 L (22.0-30.0) sec Chloride 108 H (98-107) mmol/L BUN 35 H (9-20) mg/dL Glucose 106 H (74-99) mg/dL Urine Protein Trace H (Negative) Assessment and Plan Assessment: Assessment and plan * Chest pain rule out acute coronary syndrome * Hypertension * In regards to chest pain, serial troponins ordered, cardiology consulted, stress echocardiogram ordered * Regards to history of hypertension continue patient on hydrochlorothiazide * N.p.o. in anticipation of stress test * CODE STATUS is full code Time with Patient: Greater than 30
--- NOTE | 2023-10-15 13:36 | CA ---
Transthoracic Echo Report Name: Omid Mary Age: 63 Gender: M : 1960 Exam Date: 10/15/2023 13:01 Exam Location: [facility] Ht (in): 66 Wt (lb): 178 Ordering Physician: Alie Jj Attending/Referring Phys: [id number], Анна [employer] Rental Clerk Opal Mcclain, ASHISH Procedure CPT: Indications: LVF Cardiac Hx: Technical Quality: Good Contrast 1: Total Dose (mL): Contrast 2: Total Dose (mL): MEASUREMENTS (Male / Female) Normal Values 2D ECHO LV Diastolic Diameter PLAX 4.5 cm 4.2 - 5.9 / 3.9 - 5.3 cm LV Systolic Diameter PLAX 3.0 cm IVS Diastolic Thickness 1.1 cm 0.6 - 1.0 / 0.6 - 0.9 cm LVPW Diastolic Thickness 0.9 cm 0.6 - 1.0 / 0.6 - 0.9 cm LV Relative Wall Thickness 0.5 RV Internal Dim ED PLAX 3.5 cm LA Systolic Diameter LX 3.1 cm 3.0 - 4.0 / 2.7 - 3.8 cm LV Diastolic Volume MOD 4C 68.0 cm??? LV Systolic Volume MOD 4C 29.6 cm??? LV Ejection Fraction MOD 4C 56.5 % LV Cardiac Index MOD 4C 1782.8 cm???/min???m??? LV Diastolic Length 4C 7.7 cm LV Systolic Length 4C 6.3 cm LV Diastolic Volume MOD 2C 82.0 cm??? LV Systolic Volume MOD 2C 28.0 cm??? LV Ejection Fraction MOD 2C 65.9 % LV Cardiac Index MOD 2C 2508.3 cm???/min???m??? LV Diastolic Length 2C 8.6 cm LV Systolic Length 2C 7.0 cm LA Volume 34.8 cm??? 18 - 58 / 22 - 52 cm??? LA Volume Index 17.7 cm???/m??? 16 - 28 cm???/m??? M-MODE Aortic Root Diameter MM 3.1 cm MV E Point Septal Separation 0.8 cm AV Cusp Separation MM 2.4 cm DOPPLER AV Peak Velocity 134.4 cm/s AV Peak Gradient 7.2 mmHg MV Area PHT 4.9 cm??? Mitral E Point Velocity 90.1 cm/s Mitral A Point Velocity 111.7 cm/s Mitral E to A Ratio 0.8 MV Deceleration Time 153.3 ms FINDINGS Left Ventricle Left ventricular ejection fraction is estimated at 55-60 %. Left ventricular cavity size normal. Mildly increased septal wall thickness. No obvious regional wall motion abnormalities. Right Ventricle Mild right ventricular dilatation. Unable to estimate the right ventricular systolic pressure. Right Atrium Normal right atrial size. Left Atrium Normal left atrial size. Mitral Valve Structurally normal mitral valve. No mitral stenosis or prolapse.trace to mild mitral regurgitation. Aortic Valve Trileaflet aortic valve. No aortic valve stenosis or regurgitation. Tricuspid Valve Structurally normal tricuspid valve. No tricuspid stenosis or prolapse.trace tricuspid regurgitation. Pulmonic Valve Structurally normal pulmonic valve. No pulmonic regurgitation. Pericardium No pericardial effusion. Aorta Normal size aortic root and proximal ascending aorta. CONCLUSIONS 1. Normal left ventricle size and systolic function 2. Trace to mild mitral and tricuspid regurgitation Previewed by: Dr. Jairo Scott MD (Electronically Signed) Final Date: 15 October 2023 13:35
--- NOTE | 2023-10-15 13:37 | CA ---
Stress Echo Report Omid Mary Age: 63 Gender: M : 1960 Exam Date: 10/15/2023 12:39 Exam Location: [place] Stress Ht (in): 66 Wt (lb): 178 Ordering Physician: Alie Jj Referring Physician: [id number] Telephone Order Clerk: Rock Ryan Technologist Procedure CPT: Indication: Chest Pain ICD-9 Codes: Rhythm: Patient History: Cardiac Medications: Medications in past 24 hours: Contrast: N/A Stress Results Protocol: [place] Total dose(mL): Exercise Duration (min:sec): 7:[address] Depression (mm): Angina Score: Gr Score: METS: 9.3 Resting HR: 71 Resting BP: 101 / 64 Peak HR: 143 Peak BP: 165 / 43 Max Predicted HR: 158 91 % Max Predicted HR Target HR: 134 Double Product: [id number] Stress Summary: BP Response: Normal Reason for Termination: Reached target heart rate or work-load Cardiac Symptoms: no symptoms ECG Analysis Resting ECG: Normal sinus rhythm, normal ECG Stress ECG: No abnormal ST/T wave changes with exercise Arrhythmia: Occasional PVCs Echo Analysis Resting Echo: Normal resting echocardiogram. Peak Echo Analysis: Normal treadmill stress echocardiogram. MEASUREMENTS (Male/Female) Normal Values CONCLUSIONS 1. Good exercise tolerance with rare PVCs 2. Normal echocardiographic response to exercise with no evidence of exercise induced ischemia 3. Normal stress echocardiogram Dr. Jairo Scott MD (Electronically Signed) Final Date: 15 October 2023 13:37
--- NOTE | 2023-10-15 14:13 | P.DS ---
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 * Patient said symptom onset was 1 day prior started having left-sided chest pain. The pain persisted through sleep and he woke up with pain. Again patient was trying to sleep however chest pain persisted patient decided to come to the ER to seek further attention. Patient stated this was not associated with diaphoresis, nausea, vomiting, dizziness or palpitation. Patient stated he had pressure-like sensation in the chest. Patient stated his father yesterday. Patient said he has been under a lot of stress recently * Workup initiated in ER included EKG which showed sinus rhythm, left axis deviation. Initial troponin obtained was negative patient to be admitted to medical floor with consultation from cardiology for further manage * 10/15/2023 patient underwent echocardiogram and stress test that was negative. Patient was cleared for discharge by cardiology PHYSICAL EXAMINATION: GENERAL: The patient is alert and oriented x3, not in any acute distress. Well developed, well nourished. HEENT: Pupils are round and equally reacting to light. EOMI. CARDIOVASCULAR: S1 and S2 present. No murmurs, rubs, or gallops. PULMONARY: Chest is clear to auscultation, no wheezing or crackles. ABDOMEN: Soft, nontender, nondistended, normoactive bowel sounds. No palpable organomegaly. MUSCULOSKELETAL: No joint swelling or deformity. EXTREMITIES: No cyanosis, clubbing, or pedal edema. NEUROLOGICAL: Gross neurological examination did not reveal any focal deficits. SKIN: No rashes. Assessment and plan * Chest pain ruled out acute coronary syndrome * Hypertension * In regards to chest pain, serial troponins negative, cardiology consulted, stress echocardiogram negative, cleared for discharge by cardiology * Regards to history of hypertension continue patient on hydrochlorothiazide Patient Condition at Discharge: Good Plan - Discharge Summary Discharge Rx Participant: No New Discharge Prescriptions: Continue Fluticasone Nasal [place] [Flonase Nasal [place]] 2 spr EA NOSTRIL DAILY Montelukast [Singulair] 10 mg PO DAILY hydroCHLOROthiazide [Hydrodiuril] 25 mg PO DAILY Cetirizine HCl [Zyrtec] 10 mg PO DAILY Discharge Medication List Cetirizine HCl [Zyrtec] 10 mg PO DAILY 05/03/17 [History] Fluticasone Nasal [place] [Flonase Nasal [place]] 2 spr EA NOSTRIL DAILY 05/03/17 [History] Montelukast [Singulair] 10 mg PO DAILY 05/03/17 [History] hydroCHLOROthiazide [Hydrodiuril] 25 mg PO DAILY 05/03/17 [History] Follow up Appointment(s)/Referral(s): Jairo Scott MD [STAFF PHYSICIAN] - 1 Week (Spoke to Licha. Office will call with appointment time) Usman Castillo DO [Primary Care Provider] - 1-2 days (pt to schedule appointment) Patient Instructions/Handouts: Chest Pain (DC) Discharge Disposition: HOME SELF-CARE
[2023-10-16] MEDS ORDERED: ENOXAPARIN 40 MG/0.4 ML SYRINGE SQ SCH (09:00)
== END 2023-10-15 14:35 | disposition home or self-care (01) ==
LOC: EC 01:13 → 6NMEDSUR 04:22
PROVIDERS: ADMIT Internal Medicine; ATTEND Internal Medicine
DX: R07.89 Other chest pain (principal); I10 Essential (primary) hypertension; I45.10 Unspecified right bundle-branch block; J32.9 Chronic sinusitis, unspecified; Z63.4 Disappearance and death of family member; Z98.890 Other specified postprocedural states; Z79.899 Other long term (current) drug therapy; Z82.49 Family history of ischemic heart disease and other diseases of the circulatory system
CPT/HCPCS: 96360; 96361; 99285; 36415; 93005; 93306; 93351; 80053; 83735; 84484; 85025; 85610; 85730; 81003; 71046; G0378

== ENCOUNTER → 2023-10-15 | Outpatient (CLI) | payer BC | END | disposition home or self-care (01) | LOC: RADECHMAIN 16:10 | PROVIDERS: ATTEND Family Medicine | DX: Z53.9 Procedure and treatment not carried out, unspecified reason (principal) ==

== ENCOUNTER → 2024-06-10 | Outpatient (CLI) | payer BC ==
--- NOTE | 2024-06-10 11:50 | US ---
EXAMINATION TYPE: US carotid duplex BILAT DATE OF EXAM: 06/10/2024 COMPARISON: NONE CLINICAL INDICATION: Male, 64 years old with history of R42 DIZZINESS GIDDINESS; dizziness TECHNIQUE: Grayscale, color Doppler and spectral Doppler evaluation of the bilateral carotid systems and vertebral arteries.Indirect Doppler criteria was utilized. FINDINGS: EXAM MEASUREMENTS: RIGHT: Peak Systolic Velocity (PSV) cm/sec ----- Right CCA: 78.6 ----- Right ICA: 94.8 ----- Right ECA: 87.6 ICA/CCA ratio: 1.21 RIGHT: End Diastole cm/sec ----- Right CCA: 21.0 ----- Right ICA: 0.0 ----- Right ECA: 0.0 LEFT: Peak Systolic Velocity (PSV) cm/sec ----- Left CCA: 76.9 ----- Left ICA: 58.7 ----- Left ECA: 56.2 ICA/CCA ratio: 0.76 LEFT: End Diastole cm/sec ----- Left CCA: 22.6 ----- Left ICA: 11.1 ----- Left ECA: 0.0 VERTEBRALS (direction of flow): Right Vertebral: Antegrade Left Vertebral: Antegrade Rhythm: Normal [employer] PROJECT MANAGER NOTES: *technical limitations due to high bifurcation. no evidence of significant stenosi s as visualized IMPRESSION: No significant hemodynamic stenosis as visualized. Criteria for Assigning % of Stenosis / Diameter reduction (Estimation based on the indirect measurements of the internal carotid artery velocities (ICA PSV). 1. Normal (no stenosis)=ICA PSV < 125 cm/s: ratio < 2.0: ICA EDV<40 cm/s. 2. Less than 50% stenosis=ICA PSV < 125 cm/s: ratio < 2.0: ICA EDV<40 cm/s. 3. 50 to 69% stenosis=ICA PSV of 125 to 230 cm/s: ration 2.0 ? 4.0: ICA EDV 40-100 cm/s. 4. Greater than 70% stenosis to near occlusion= ICA PSV > 230 cm/s: ratio > 4.0: ICA EDV > 100 cm/s. 5. Near occlusion= ICA PSV velocities may be low or undetectable: variable ratio and ICA EDV. 6. Total occlusion=unable to detect flow. [facility], , 06/10/2024 11:47 AM
== END | disposition home or self-care (01) ==
LOC: RADUSWWP 11:23
PROVIDERS: ATTEND Family Medicine
DX: R42 Dizziness and giddiness (principal)
CPT/HCPCS: 93880